=== PATIENT | male | born 1935 | race Two or more races ===

== ENCOUNTER 2017-12-24 12:46 | Inpatient (IN) | payer MEDICARE, OTHER ==
[~2017-12-24] VITALS: Ht 172.7 cm; Wt 65.3 kg
[~2017-12-24 12:46] MED LIST: ACETAMINOPHEN650 M2 ORAL; ATORVASTATIN CA20 MG ORAL; CATAPRES0.1 MG ORAL; DILANTIN100 MG ORAL; ENALAPRIL MALEA20 MG ORAL; MILK OF MA400 MG/51 ORAL; NORCO 5-325 TA1 EAC1 ORAL; OYSTER SHELL C500 MG PO; PROMOD946 ML PO; TOBRAMYCIN5 ML OPHTHALM; ULTRAM50 MG ORAL; VITAMIN D400 INTLU ORAL
[2017-12-24] MEDS ORDERED: PLAVIX75 MG ORAL (18:51)
[2017-12-24] MEDS ORDERED: TYLENOL EXTRA500 MG ORAL (18:51)
[2017-12-24] MEDS ORDERED: COLACE100 MG ORAL (18:51)
[2017-12-24 19:21] LABS: BASOPHILS % (AUTO) 0.3 % (0.0-2.0); EOSINOPHILS % (AUTO) 0.7 % (0.0-3.0); LYMPHOCYTES % (AUTO) 28.2 % (20.0-45.0); MEAN CORPUSCULAR VOLUME 86 FL (80-99); MONOCYTES % (AUTO) 6.6 % (1.0-10.0); NEUTROPHILS % (AUTO) 64.1 % (45.0-75.0); PLATELET COUNT 259 K/UL (150-450); RED CELL DISTRIBUTION WIDTH 12.7 % (11.6-14.8); WHITE BLOOD COUNT 8.5 K/UL (4.8-10.8)
[2017-12-24] MEDS ORDERED: Acetaminophen 500mg (ES) tab ORAL PRN (19:30)
[2017-12-24 19:46] LABS: ALANINE AMINOTRANSFERASE 18 U/L (12-78); ALBUMIN 3.3 G/DL (3.4-5.0); ALBUMIN/GLOBULIN RATIO 0.8 (1.0-2.7); ALKALINE PHOSPHATASE 158 U/L (46-116); ANION GAP 10 mmol/L (5-15); ASPARTATE AMINO TRANSFERASE 14 U/L (15-37); BILIRUBIN,TOTAL 0.4 MG/DL (0.2-1.0); BLOOD UREA NITROGEN 9 mg/dL (7-18); CALCIUM 8.6 MG/DL (8.5-10.1); CARBON DIOXIDE 24 MMOL/L (21-32); CHLORIDE 104 MMOL/L (98-107); CREATININE 0.7 MG/DL (0.55-1.30); POTASSIUM 3.5 MMOL/L (3.5-5.1); SODIUM 138 MMOL/L (136-145)
[2017-12-24 20:00] VITALS: BP 158/92
[2017-12-24] MEDS ORDERED: MULTIVITAMINS1 EAC8 ORAL (20:44)
[2017-12-24] MEDS ORDERED: DILANTIN100 MG ORAL (20:44)
[2017-12-24] MEDS ORDERED: CRANBERRY425 MG PO (20:44)
[2017-12-24] MEDS: Heparin 5000 units/ml inj SUBQ SCH (21:11)
[2017-12-25] VITALS: BP 163/100
[2017-12-25 04:00] VITALS: BP 169/91
[2017-12-25 07:05] LABS: CHOLESTEROL 198 MG/DL (< 200); HDL CHOLESTEROL 38 MG/DL (40-60); TRIGLYCERIDES 176 MG/DL (30-150)
[2017-12-25 08:00] VITALS: BP 150/89
[2017-12-25] MEDS ORDERED: traMADol 50mg tab ORAL SCH (09:00)
[2017-12-25] MEDS ORDERED: Vitamin D 400 INTLU TAB ORAL SCH (09:00)
[2017-12-25] MEDS ORDERED: Tobramycin Op Soln 0.3% 5ml BOTH EYES SCH (09:00)
[2017-12-25] MEDS ORDERED: Phenytoin 100mg cap ORAL SCH (09:00)
[2017-12-25] MEDS: Docusate 250mg cap ORAL SCH (09:03)
[2017-12-25] MEDS: Metoprolol 25mg tab ORAL SCH ×2 (09:03→22:00)
[2017-12-25] MEDS: Heparin 5000 units/ml inj SUBQ SCH ×2 (09:04→22:04)
[2017-12-25] MEDS: Phenytoin Susp 100mg/4ml NG SCH ×2 (10:22→22:01)
[2017-12-25 12:00] VITALS: BP 152/75
[2017-12-25] MEDS ORDERED: Lisinopril 20mg tab ORAL SCH (13:00)
[2017-12-25] MEDS ORDERED: Norco 5mg/325mg tab ORAL PRN (13:30)
--- NOTE | 2017-12-25 14:04 | Cardiology Report ---
APPROVED REPORT EXAM: Two-dimensional and M-mode echocardiogram with Doppler and color Doppler. INDICATION ALTERED LOC M-Mode DIMENSIONS Left Atrium (MM)3.5 (1.6-4.0cm) Aortic Root2.9 (2.0-3.7cm) Aortic Cusp Exc.1.7 (1.5-2.0cm) Normal left ventricular chamber size. This study precludes analysis of systolic function and wall motion. Left ventricular ejection fraction is grossly noraml . Moderate left ventricular hypertrophy by 2-D. No evidence of pericardial effusion. Focal aortic valve sclerosis with adequate cusp excursion. Thickened mitral valve leaflets with normal excursion. Mitral annulus and aortic root calcification.
[2017-12-25 16:00] VITALS: BP 162/86
--- NOTE | 2017-12-25 17:15 | History and Physical Report ---
DATE OF ADMISSION: 12/24/2017 CHIEF COMPLAINT: Chest pain. HISTORY OF PRESENT ILLNESS: The patient is an unfortunate male. He has a prior history of stroke with right-sided hemiparesis. He has a history of dementia, peripheral vascular disease, urinary retention, BPH, and pancytopenia. He was transferred from a alf facility with complaints of chest pain. He was initially taken to an outside hospital. There, his initial troponin, EKG, and chest x-ray were unremarkable. The patient does have a significant history, which includes stroke. So, the patient best be admitted because of his underlying risk factors and for further evaluation. Currently, he continues to have mild chest pain, which is somewhat reproducible. He denies any fevers or chills. No cough. PAST MEDICAL HISTORY: As above. PAST SURGICAL HISTORY: None. CURRENT MEDICATIONS: Reconciled and reviewed. ALLERGIES: None. FAMILY HISTORY: None. SOCIAL HISTORY: Negative for tobacco, ethanol, or drugs. REVIEW OF SYSTEMS: Difficult to obtain as the patient is aphasic. PHYSICAL EXAMINATION: VITAL SIGNS: Temperature 98, pulse 80, respirations 25, and blood pressure 159/100. GENERAL: The patient is a chronically ill-appearing male, in no apparent distress. He has a left facial droop. NECK: Supple. HEART: Regular rate and rhythm. LUNGS: Clear. ABDOMEN: Soft, nontender, and nondistended. EXTREMITIES: Without clubbing or cyanosis. There is right-sided hemiparesis noted. LABORATORY AND DIAGNOSTIC DATA: EKG and chest x-ray are negative. Sodium was 138, potassium 3.5, and creatinine 0.7. Natriuretic peptide level was 43. The LDL is 132. TSH is 4. ASSESSMENT: This is a pleasant male with a history of stroke, peripheral artery disease, and hypertension admitted with chest pain. 1. Chest pain, rule out acute coronary syndrome. 2. Hypertension. 3. History of stroke. PLAN: 1. Antiplatelet therapy. 2. Cardiology consultation. 3. Check a venous duplex of the lower extremities. 4. Continue Dilantin. 5. Lipid therapy. 6. Check an echo. Burt Russell M.D. DR: EDGAR JOB#: [id number] CC:
[2017-12-25 20:00] VITALS: BP 140/70
[2017-12-25] MEDS ORDERED: Milk of Magnesia 30ml Ud ORAL SCH (21:00)
[2017-12-26] VITALS: BP 137/75
--- NOTE | 2017-12-26 00:30 | Progress Note ---
DATE: 12/25/2017 CARDIOLOGY PROGRESS NOTE SUBJECTIVE: No new chest pain. monitor technician sinus with atrial ectopy, nonsustained. OBJECTIVE: VITAL SIGNS: Blood pressure 150/89 to 168/86, heart rate 91, respiratory rate 20, and afebrile. NECK: Supple. LUNGS: Clear. CARDIAC: Regular. Normal S1, S2 with a fourth heart sound. ABDOMEN: Soft. EXTREMITIES: No edema. Pulses diminished. Right hemiparesis. LABORATORY DATA: Natriuretic peptide 483. Total cholesterol of 198 with LDL 132 and HDL 38. TSH 4. Echocardiogram, poor study due to poor window. IMPRESSION: 1. Acute coronary syndrome. 2. Hypertensive heart disease with uncontrolled blood pressure. 3. Hyperlipidemia with poor lipid parameters including low HDL syndrome. 4. Type 2 diabetes mellitus. 5. Mild protein-calorie malnutrition. 6. Peripheral artery disease with no signs of acute lower extremity ischemia. PLAN: 1. Up titrate and optimize blood pressure control. 2. Maximize antianginal therapy. 3. Increase statin dose. 4. LDL goal should be less than 70. 5. Continue antiplatelet therapy. 6. We will continue efforts to optimize medically rather than pursue an invasive strategy in this patient with multiple comorbidities and poor performance status. Jose Luis Herron M.D. DR: JOMAR JOB#: [id number] CC:
--- NOTE | 2017-12-26 01:45 | Consultation ---
DATE OF CONSULTATION: 12/24/2017 CARDIOLOGY CONSULTATION CONSULTING PHYSICIAN: Jose Luis Herron M.D. REQUESTING PHYSICIAN: Burt Russell M.D. REASON FOR CONSULTATION: Chest pain in the setting of severe atherosclerosis. HISTORY OF PRESENT ILLNESS: This is an 82-year-old male, who resides at a [facility] facility. He has a history of accelerated atherosclerosis including prior CVA and severe peripheral vascular disease with coronary atherosclerosis as well. He apparently complained of chest pain at the [facility] facility and while he is not verbal, he just showed with hand motions to family members. The patient was taken to the emergency room at an outside facility where initial troponins were negative. EKG revealed sinus rhythm with nonspecific ST-T wave changes and chest x-ray revealed no acute process. He was transferred here for continuation of care. The patient apparently still had chest pain on arrival here, although at this time during my evaluation, he does not. PAST MEDICAL HISTORY: Cerebrovascular disease, cerebrovascular accident with right hemiparesis, peripheral artery disease, history of ischemic right first toe, hypertension with hypertensive heart disease, prostatic hypertrophy, type 2 diabetes mellitus, and hyperlipidemia. MEDICATIONS: Prior to admission, reviewed and reconciled. ALLERGIES: None. SOCIAL HISTORY: No record of smoking, alcohol, or substance abuse. FAMILY HISTORY: Noncontributory. REVIEW OF SYSTEMS: Not obtainable from the patient. Pertinent data from prior records is as outlined above. PHYSICAL EXAMINATION: VITAL SIGNS: Blood pressure 158/92, pulse 89, respiratory rate 20, and oxygen saturation on room air 96%. HEENT: Temporal wasting. Pale conjunctivae. Oropharynx clear. Mucous membranes moist. NECK: Supple. Jugular venous pressure normal. No bruits. LUNGS: Clear. CARDIAC: Regular rhythm and rate. Normal S1, S2 with a fourth heart sound. ABDOMEN: Soft and nontender. EXTREMITIES: No clubbing or cyanosis. Decreased pulses. No acute ischemic changes. No edema. Right-sided weakness. Aphasia. LABORATORY DATA: White count 8.5, hemoglobin 15. Troponin is 0.031. BUN 9, creatinine 0.7, potassium 3.5. Albumin 3.3. IMPRESSION: 1. Acute coronary syndrome. 2. Type 2 diabetes mellitus. 3. Hypertensive heart disease. 4. Hyperlipidemia. 5. Cerebrovascular accident with hemiparesis and aphasia. PLAN: 1. Cardiac monitoring. 2. Serial troponin. 3. Antianginal therapy including nitrates and beta-blockers. 4. Statin drug for LDL goal less than 100. Check full lipid panel. 5. Continue anti-platelet therapy. 6. DVT prophylaxis. 7. Recurring chest pain may warrant transfer for cardiac catheterization, although his poor performance status suggest that medical management be optimized if possible. Jose Luis Herron M.D. DR: Leah JOB#: [id number] CC:
[2017-12-26 04:00] VITALS: BP 135/82
[2017-12-26 08:00] VITALS: BP 165/85
[2017-12-26] MEDS: Docusate 250mg cap ORAL SCH (08:12)
[2017-12-26] MEDS: Phenytoin Susp 100mg/4ml NG SCH ×2 (08:12→20:45)
[2017-12-26] MEDS: Lisinopril 20mg tab ORAL SCH (08:13)
[2017-12-26] MEDS: Metoprolol 25mg tab ORAL SCH ×2 (08:14→20:47)
[2017-12-26] MEDS: Heparin 5000 units/ml inj SUBQ SCH ×2 (08:15→20:48)
[2017-12-26] MEDS ORDERED: Lisinopril 20mg tab ORAL SCH (09:00)
[2017-12-26 12:00] VITALS: BP 125/70
[2017-12-26 16:00] VITALS: BP 135/68
[2017-12-26 20:00] VITALS: BP 136/77
[2017-12-27] VITALS: BP 132/76
--- NOTE | 2017-12-27 03:15 | Progress Note ---
DATE: 12/26/2017 CARDIOLOGY PROGRESS NOTE SUBJECTIVE: The patient has not had any recurring chest pain, shortness of breath, or arrhythmias. Monitored rhythm is sinus. No significant ectopy. PHYSICAL EXAMINATION: VITAL SIGNS: Blood pressure 136/77, pulse 82, respiratory rate 19, afebrile. NECK: Supple. LUNGS: Clear. CARDIAC: Regular. Normal S1, S2 with a fourth heart sound. ABDOMEN: Soft. EXTREMITIES: No edema. NEUROLOGIC: Baseline neurologic deficits. IMPRESSION: 1. Coronary artery disease with anginal episode, now appears to have stabilized. 2. Cerebrovascular disease. 3. Peripheral artery disease. 4. Hyperlipidemia. 5. Seizure disorder. 6. Hypertensive heart disease, now with blood pressure control improved. PLAN: 1. Continue advanced statin dosing. 2. Maintain current antihypertensives. 3. We will recheck laboratory studies. 4. We will consider long-acting nitrates as well. 5. We will check Dilantin level. Tyesha Coto JOB#: [id number] CC:
[2017-12-27 04:00] VITALS: BP_SYST 128; BP_SYST 139; BP_DIAS 62; BP_DIAS 89
[2017-12-27 08:00] VITALS: BP 148/105
[2017-12-27] MEDS: Docusate 250mg cap ORAL SCH (08:28)
[2017-12-27] MEDS: Phenytoin Susp 100mg/4ml NG SCH ×2 (08:28→20:58)
[2017-12-27] MEDS: Lisinopril 20mg tab ORAL SCH (08:29)
[2017-12-27] MEDS: Imdur 30mg tab ORAL SCH (08:29)
[2017-12-27] MEDS: Metoprolol 25mg tab ORAL SCH ×2 (08:30→20:59)
[2017-12-27] MEDS: Heparin 5000 units/ml inj SUBQ SCH ×2 (08:31→20:59)
[2017-12-27 08:39] LABS: BASOPHILS % (AUTO) 0.7 % (0.0-2.0); EOSINOPHILS % (AUTO) 2.4 % (0.0-3.0); HEMATOCRIT 42.9 % (42.0-52.0); HEMOGLOBIN 14.1 G/DL (14.2-18.0); LYMPHOCYTES % (AUTO) 34.7 % (20.0-45.0); MEAN CORPUSCULAR VOLUME 89 FL (80-99); MONOCYTES % (AUTO) 8.5 % (1.0-10.0); NEUTROPHILS % (AUTO) 53.7 % (45.0-75.0); PLATELET COUNT 205 K/UL (150-450); RED BLOOD COUNT 4.82 M/UL (4.70-6.10); RED CELL DISTRIBUTION WIDTH 12.7 % (11.6-14.8); WHITE BLOOD COUNT 5.6 K/UL (4.8-10.8)
[2017-12-27 09:13] LABS: ALANINE AMINOTRANSFERASE 20 U/L (12-78); ALBUMIN 2.9 G/DL (3.4-5.0); ALBUMIN/GLOBULIN RATIO 0.7 (1.0-2.7); ALKALINE PHOSPHATASE 140 U/L (46-116); ANION GAP 10 mmol/L (5-15); ASPARTATE AMINO TRANSFERASE 16 U/L (15-37); BILIRUBIN,TOTAL 0.4 MG/DL (0.2-1.0); BLOOD UREA NITROGEN 23 mg/dL (7-18); CALCIUM 8.1 MG/DL (8.5-10.1); CARBON DIOXIDE 24 MMOL/L (21-32); CHLORIDE 109 MMOL/L (98-107); POTASSIUM 3.5 MMOL/L (3.5-5.1); SODIUM 143 MMOL/L (136-145)
[2017-12-27 12:00] VITALS: BP 108/63
--- NOTE | 2017-12-27 15:00 | General Progress Note ---
Assessment/Plan Problem List: (1) Hypertension ICD Codes: I10 - Essential (primary) hypertension SNOMED: 82269364 (2) Toxic metabolic encephalopathy ICD Codes: G92 - Toxic encephalopathy SNOMED: 041611516 (3) Arterial occlusion (4) Conjunctivitis ICD Codes: H10.9 - Unspecified conjunctivitis SNOMED: 4407627 (5) Chest pain ICD Codes: R07.9 - Chest pain, unspecified SNOMED: 89387381 Status: stable, progressing Assessment/Plan cont current rx replace lytes antiplt rx compliance stressed cards follow up dc planning tomorrow if stable Subjective ROS Limited/Unobtainable: No Constitutional: Reports: malaise, weakness HEENT: Reports: no symptoms Cardiovascular: Reports: chest pain Respiratory: Reports: no symptoms Gastrointestinal/Abdominal: Reports: no symptoms Genitourinary: Reports: no symptoms Neurologic/Psychiatric: Reports: anxiety, pre-existing deficit Endocrine: Reports: no symptoms Hematologic/Lymphatic: Reports: no symptoms Allergies: Coded Allergies: No Known Allergies (Verified , 06/01/08) All Systems: reviewed and negative except above Subjective pulled out iv. refusing meds from male nurse but pt will take meds from female nurse. Objective Last 24 Hour Vital Signs Date Time Temp Pulse Resp B/P (MAP) Pulse Ox O2 Delivery O2 Flow Rate FiO2 12/27/17 12:00 98.0 79 18 108/63 96 Room Air 98.0 12/27/17 12:00 66 12/27/17 08:30 88 148/105 12/27/17 08:29 148/105 12/27/17 08:29 148/105 12/27/17 08:28 148/105 12/27/17 08:00 98.1 88 18 148/105 96 Room Air 98.1 12/27/17 08:00 87 12/27/17 04:00 87 12/27/17 04:00 97.6 87 18 128/89 96 Room Air 97.6 12/27/17 00:00 97.8 79 18 132/76 96 Room Air 97.8 12/27/17 00:00 79 12/26/17 20:47 78 135/68 12/26/17 20:00 98.1 88 19 136/77 95 Room Air 98.1 12/26/17 20:00 82 12/26/17 17:30 135/68 6/23/18 16:00 77 12/26/17 16:00 97.8 78 18 135/68 96 Room Air 97.8 Intake and Output 12/26/17 12/27/17 19:00 07:00 Intake Total 120 ml Output Total 300 ml Balance 120 ml -300 ml Intake Oral 120 ml Output Urine Total 300 ml # Voids 1 Laboratory Tests 12/27/17 06:20: White Blood Count 5.6, Red Blood Count 4.82, Hemoglobin 14.1L, Hematocrit 42.9, Mean Corpuscular Volume 89, Mean Corpuscular Hemoglobin 29.2, Mean Corpuscular Hemoglobin Concent 32.9, Red Cell Distribution Width 12.7, Platelet Count 205, Mean Platelet Volume 6.1L, Neutrophils (%) (Auto) 53.7, Lymphocytes (%) (Auto) 34.7, Monocytes (%) (Auto) 8.5, Eosinophils (%) (Auto) 2.4, Basophils (%) (Auto ) 0.7, Sodium Level 143, Potassium Level 3.5, Chloride Level 109H, Carbon Dioxide Level 24, Anion Gap 10, Blood Urea Nitrogen 23H, Creatinine 1.0, Estimat Glomerular Filtration Rate , Glucose Level 136H, Calcium Level 8.1L, Total Bilirubin 0.4, Aspartate Amino Transf (AST/SGOT) 16, Alanine Aminotransferase (ALT/SGPT) 20, Alkaline Phosphatase 140H, Pro-B-Type Natriuretic Peptide 180H, Total Protein 6.8, Albumin 2.9L, Globulin 3.9, Albumin /Globulin Ratio 0.7L, Phenytoin (Dilantin) Level 11.0 Height (Feet): 5 Height (Inches): 8.00 Weight (Pounds): 144 General Appearance: WD/WN, alert, confused Neck: supple Cardiovascular: normal rate, regular rhythm Respiratory/Chest: chest wall non-tender, lungs clear, normal breath sounds Abdomen: normal bowel sounds Edema: no edema noted Arm (L), no edema noted Arm (R), no edema noted Leg (L), no edema noted Leg (R), no edema noted Pedal (L), no edema noted Pedal (R), no edema noted Generalized Neurologic: alert, motor weakness - left side Burt Russell MD Dec 27, 2017 15:00
[2017-12-27 16:00] VITALS: BP 118/71
[2017-12-27 20:00] VITALS: BP 135/72
[2017-12-28] VITALS: BP 141/77
--- NOTE | 2017-12-28 | Progress Note ---
DATE: 12/27/2017 SUBJECTIVE: No apparent chest pain. No shortness of breath. Occasional agitation and noncompliance with medications from staff. OBJECTIVE: VITAL SIGNS: Blood pressure 118/71, pulse 82, respiratory rate 18. Earlier had a single blood pressure elevation of 148/108. LUNGS: Clear. CARDIAC: Regular. Normal S1, S2 with a fourth heart sound. ABDOMEN: Soft. EXTREMITIES: No edema. LABORATORY DATA: White count 5.6, hemoglobin 14.1. Potassium 3.5, BUN 23, creatinine 1, albumin 2.9. Pro-natriuretic peptide 180. IMPRESSION: 1. Stable angina. 2. Coronary atherosclerosis. 3. Peripheral artery disease. 4. Dyslipidemia. 5. Dementia with agitation. PLAN: 1. Continue current anti-platelet and anti-lipid regimen. 2. Maintain current cardiovascular drugs without change including long-acting nitrates. 3. Discharge planning. Jose Luis Herron M.D. DR: Dirk JOB#: [id number] CC:
[2017-12-28 04:00] VITALS: BP 151/89
[2017-12-28 08:00] VITALS: BP 134/67
[2017-12-28 08:03] LABS: BASOPHILS % (AUTO) 0.7 % (0.0-2.0); EOSINOPHILS % (AUTO) 2.2 % (0.0-3.0); HEMATOCRIT 43.8 % (42.0-52.0); HEMOGLOBIN 14.5 G/DL (14.2-18.0); LYMPHOCYTES % (AUTO) 41.7 % (20.0-45.0); MEAN CORPUSCULAR VOLUME 90 FL (80-99); NEUTROPHILS % (AUTO) 47.5 % (45.0-75.0); PLATELET COUNT 227 K/UL (150-450); RED BLOOD COUNT 4.89 M/UL (4.70-6.10); RED CELL DISTRIBUTION WIDTH 12.8 % (11.6-14.8); WHITE BLOOD COUNT 4.8 K/UL (4.8-10.8)
[2017-12-28 08:32] LABS: ALANINE AMINOTRANSFERASE 21 U/L (12-78); ALBUMIN 3.2 G/DL (3.4-5.0); ALBUMIN/GLOBULIN RATIO 0.9 (1.0-2.7); ALKALINE PHOSPHATASE 145 U/L (46-116); ANION GAP 8 mmol/L (5-15); ASPARTATE AMINO TRANSFERASE 19 U/L (15-37); BILIRUBIN,TOTAL 0.4 MG/DL (0.2-1.0); BLOOD UREA NITROGEN 28 mg/dL (7-18); CALCIUM 8.4 MG/DL (8.5-10.1); CARBON DIOXIDE 25 MMOL/L (21-32); CHLORIDE 113 MMOL/L (98-107); POTASSIUM 4.7 MMOL/L (3.5-5.1); SODIUM 146 MMOL/L (136-145)
[2017-12-28] MEDS: Metoprolol 25mg tab ORAL SCH (09:15)
[2017-12-28] MEDS: Phenytoin Susp 100mg/4ml NG SCH (09:15)
[2017-12-28] MEDS: Docusate 250mg cap ORAL SCH (09:15)
[2017-12-28] MEDS: Imdur 30mg tab ORAL SCH (09:15)
[2017-12-28] MEDS: Lisinopril 20mg tab ORAL SCH (09:16)
[2017-12-28] MEDS: Heparin 5000 units/ml inj SUBQ SCH (09:18)
[2017-12-28 12:00] VITALS: BP 155/96
--- NOTE | 2017-12-28 12:30 | Discharge Summary ---
DATE OF ADMISSION: 12/24/2017 DATE OF DISCHARGE: 12/28/2017 ADMISSION DIAGNOSES: 1. Acute coronary syndrome. 2. Encephalopathy. 3. Prior history of stroke. 4. Hypertension. 5. Hyperlipidemia. 6. Seizure disorder. DISCHARGE DIAGNOSES: 1. Acute coronary syndrome. 2. Encephalopathy. 3. Prior history of stroke. 4. Hypertension. 5. Hyperlipidemia. 6. Seizure disorder. HOSPITAL COURSE: The patient was initially transferred from the [facility] facility with complaints of chest pain here to rule out for NV with serial enzymes and EKGs. He had no further episodes of chest pain while here in the hospital. He was ruled out for NV. He was continued on seizure medications. Cardiology consultation was obtained. No further recommendations regarding workup was recommended other than continue medical management and observation. On discharge, he was stable, will be discharged back to the [facility] facility. DISCHARGE MEDICATIONS: Please see discharge medication list for discharge medications. DIET: Cardiac diet. ACTIVITIES: Ad-gage. FOLLOWUP: The patient will follow up in one to two days to [facility]. Burt Russell M.D. DR: MEHRAN JOB#: [id number] CC:
--- NOTE | 2017-12-28 19:30 | Progress Note ---
DATE: 12/28/2017 CARDIOLOGY PROGRESS NOTE SUBJECTIVE: The patient is without chest pain or shortness of breath. Monitored rhythm, sinus. OBJECTIVE: VITAL SIGNS: Blood pressure reveals range of 134/67 to 155/96, heart rate is 73 to 99, and respiratory is 18 to 20. He remains afebrile. NECK: Supple. Jugular venous pressure normal. LUNGS: Clear. CARDIAC: Regular rhythm and rate. Normal S1 and S2 with a fourth heart sound. ABDOMEN: Soft. EXTREMITIES: No edema. Baseline aphasia. IMPRESSION: 1. Arteriosclerotic cardiovascular disease with apparent stabilized anginal pattern on medical therapy. 2. Hypertensive cardiomyopathy with episodes of blood pressure elevations. 3. Peripheral artery disease with history of right first toe amputation. 4. Cerebrovascular disease with right-sided weakness. 5. Hyperlipidemia, on statin drug. PLAN: Stable for transfer to [facility] facility. Long-acting nitrates were just added. Additional antihypertensives can be considered if blood pressure range remains in the high normal range that may include advancing the long-acting nitrate dose or increasing the beta-florencia, this was discussed with the primary care physician. LDL level should be checked in 6 weeks with goal less than 70. Jose Luis Herron M.D. DR: RUBIN JOB#: [id number] CC:
== END 2017-12-28 13:00 | DRG 311 ==
LOC: 2E 12:46
DX: I24.9 Acute ischemic heart disease, unspecified (principal); G92 Toxic encephalopathy; I69.351 Hemiplegia and hemiparesis following cerebral infarction affecting right dominant side; E44.1 Mild protein-calorie malnutrition; F03.91 Unspecified dementia, unspecified severity, with behavioral disturbance; I11.9 Hypertensive heart disease without heart failure; E78.5 Hyperlipidemia, unspecified; I73.9 Peripheral vascular disease, unspecified; N40.1 Benign prostatic hyperplasia with lower urinary tract symptoms; R33.8 Other retention of urine; E11.9 Type 2 diabetes mellitus without complications; I69.320 Aphasia following cerebral infarction; I25.118 Atherosclerotic heart disease of native coronary artery with other forms of angina pectoris; H10.9 Unspecified conjunctivitis; Z89.411 Acquired absence of right great toe
CPT/HCPCS: 36415; 80053; 80061; 80185; 83880; 84443; 84484; 85025; 93306; 93970; J8499

== ENCOUNTER 2018-07-01 12:16 | Inpatient (IN) | payer MEDICARE, OTHER ==
[~2018-07-01] VITALS: Ht 172.7 cm; Wt 72.6 kg
[~2018-07-01 12:16] MED LIST changes: +COLACE100 MG ORAL; +CRANBERRY425 MG PO; +MULTIVITAMINS1 EAC8 ORAL; +PLAVIX75 MG ORAL; +TYLENOL EXTRA500 MG ORAL
[2018-07-01] MEDS ORDERED: Sodium Chloride 500ML 500 ML IV ONE (12:36)
[2018-07-01 12:37] VITALS: BP 177/97
[2018-07-01 13:09] VITALS: BP 161/83
[2018-07-01 13:22] LABS: ANION GAP 11 mmol/L (5-15); BLOOD UREA NITROGEN 19 mg/dL (7-18); CALCIUM 9.4 MG/DL (8.5-10.1); CARBON DIOXIDE 26 MMOL/L (21-32); CHLORIDE 106 MMOL/L (98-107); CREATININE 0.7 MG/DL (0.55-1.30); POTASSIUM 4.1 MMOL/L (3.5-5.1); SODIUM 143 MMOL/L (136-145)
[2018-07-01 13:26] LABS: BASOPHILS % (AUTO) 0.5 % (0.0-2.0); EOSINOPHILS % (AUTO) 1.1 % (0.0-3.0); HEMATOCRIT 50.6 % (42.0-52.0); HEMOGLOBIN 16.4 G/DL (14.2-18.0); LYMPHOCYTES % (AUTO) 36.6 % (20.0-45.0); MEAN CORPUSCULAR VOLUME 91 FL (80-99); MONOCYTES % (AUTO) 7.6 % (1.0-10.0); NEUTROPHILS % (AUTO) 54.3 % (45.0-75.0); PLATELET COUNT 230 K/UL (150-450); RED BLOOD COUNT 5.57 M/UL (4.70-6.10); RED CELL DISTRIBUTION WIDTH 14.5 % (11.6-14.8); WHITE BLOOD COUNT 5.4 K/UL (4.8-10.8)
[2018-07-01 13:31] LABS: ALANINE AMINOTRANSFERASE 17 U/L (12-78); ALBUMIN 3.5 G/DL (3.4-5.0); ALBUMIN/GLOBULIN RATIO 0.9 (1.0-2.7); ALKALINE PHOSPHATASE 139 U/L (46-116); ASPARTATE AMINO TRANSFERASE 23 U/L (15-37); BILIRUBIN,TOTAL 0.6 MG/DL (0.2-1.0); CKMB 0.6 NG/ML (0.0-3.6); CREATINE KINASE 77 U/L (26-308)
--- NOTE | 2018-07-01 13:41 | Emergency Room Report ---
History of Present Illness General Chief Complaint: Abnormal Labs Source: Patient Present Illness HPI Patient presents with reports of elevated Dilantin levels at the nursing facility Patient himself is chronically debilitated and does not have any input There was no reports of nystagmus or change in mental status There was no reports of vomiting or diarrhea Patient is on Dilantin for seizure disorder Allergies: Coded Allergies: No Known Allergies (Verified , 06/01/08) Patient History Limited by: medical condition Past Medical History: see triage record Pertinent Family History: unable to obtain Reviewed Nursing Documentation: PMH: Agreed; PSxH: Agreed Nursing Documentation-PMH Hx Cardiac Problems: Yes - A FIB, THROMBOCYTOPENIA, TACHYCARDIA Hx Hypertension: Yes Hx Diabetes: Yes Hx Cancer: No Hx Gastrointestinal Problems: No Hx Neurological Problems: Yes Hx Cerebrovascular Accident: Yes - R SIDED WEAKNESS Hx Seizures: Yes 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 Review of Systems All Other Systems: limited - Other than the ones mentioned in the history of present illness all others are reviewed however they do stay limited due to the patient's mental status Physical Exam Vital Signs Date Time Temp Pulse Resp B/P (MAP) Pulse Ox O2 Delivery O2 Flow Rate FiO2 07/01/18 12:19 97.7 78 16 137/81 98 Room Air Sp02 EP Interpretation: reviewed, normal General Appearance: no apparent distress Head: normocephalic, atraumatic Eyes: bilateral eye PERRL ENT: normal pharynx Neck: supple Respiratory: chest non-tender, lungs clear Cardiovascular #1: regular rate, rhythm Gastrointestinal: non tender, soft Musculoskeletal: other - Patient chronically debilitated both feet are extended Neurologic: responsive - To physical stimuli Skin: normal color, no rash Lymphatic: no adenopathy Medical Decision Making Diagnostic Impression: Primary Impression: Dilantin toxicity ER Course Patient is a fairly complex patient with multiple differential to consideration including but not limited to cardiac cardiopulmonary and vascular emergencies Patient's Dilantin level is still significantly elevated Patient has further hydration performed On monitoring and requires further inpatient evaluation Labs Test 07/01/18 12:55 White Blood Count 5.4 K/UL (4.8-10.8) Red Blood Count 5.57 M/UL (4.70-6.10) Hemoglobin 16.4 G/DL (14.2-18.0) Hematocrit 50.6 % (42.0-52.0) Mean Corpuscular Volume 91 FL (80-99) Mean Corpuscular Hemoglobin 29.5 PG (27.0-31.0) Mean Corpuscular Hemoglobin Concent 32.4 G/DL (32.0-36.0) Red Cell Distribution Width 14.5 % (11.6-14.8) Platelet Count 230 K/UL (150-450) Mean Platelet Volume 6.0 FL (6.5-10.1) Neutrophils (%) (Auto) 54.3 % (45.0-75.0) Lymphocytes (%) (Auto) 36.6 % (20.0-45.0) Monocytes (%) (Auto) 7.6 % (1.0-10.0) Eosinophils (%) (Auto) 1.1 % (0.0-3.0) Basophils (%) (Auto) 0.5 % (0.0-2.0) Sodium Level 143 MMOL/L (136-145) Potassium Level 4.1 MMOL/L (3.5-5.1) Chloride Level 106 MMOL/L (98-107) Carbon Dioxide Level 26 MMOL/L (21-32) Anion Gap 11 mmol/L (5-15) Blood Urea Nitrogen 19 mg/dL (7-18) Creatinine 0.7 MG/DL (0.55-1.30) Estimat Glomerular Filtration Rate mL/min (>60) Glucose Level 104 MG/DL (74-106) Calcium Level 9.4 MG/DL (8.5-10.1) Total Bilirubin 0.6 MG/DL (0.2-1.0) Aspartate Amino Transf (AST/SGOT) 23 U/L (15-37) Alanine Aminotransferase (ALT/SGPT) 17 U/L (12-78) Alkaline Phosphatase 139 U/L (46-116) Total Creatine Kinase 77 U/L (26-308) Creatine Kinase MB 0.6 NG/ML (0.0-3.6) Creatine Kinase MB Relative Index 0.7 Total Protein 7.5 G/DL (6.4-8.2) Albumin 3.5 G/DL (3.4-5.0) Globulin 4.0 g/dL Albumin/Globulin Ratio 0.9 (1.0-2.7) Phenytoin (Dilantin) Level 32.7 ug/mL (10-20) Rhythm Strip Diag. Results EP Interpretation: yes Rate: 70 Rhythm: NSR, no PVC's, no ectopy Last Vital Signs Date Time Temp Pulse Resp B/P (MAP) Pulse Ox O2 Delivery O2 Flow Rate FiO2 07/01/18 13:09 97.7 75 16 161/83 98 Room Air Status: improved Disposition: ADMITTED INPATIENT Condition: Serious Referrals: Aureliano Allison MD (PCP) Korin Jensen DO Jul 01, 2018 13:41
[2018-07-01] MEDS ORDERED: ASCORBIC ACID500 MG ORAL (15:25)
[2018-07-01] MEDS ORDERED: CLONIDINE HCL0.1 MG PO (15:25)
[2018-07-01] MEDS ORDERED: NORVASC5 MG ORAL (15:25)
[2018-07-01] MEDS ORDERED: ACETAMINOPHEN325 M1 ORAL (15:25)
[2018-07-01] MEDS ORDERED: Milk of Magnesia 30ml Ud ORAL PRN (15:45)
[2018-07-01] MEDS ORDERED: Fleet's Enema 133ml RECTAL PRN (15:45)
[2018-07-01] MEDS ORDERED: Norco 5mg/325mg tab ORAL PRN (15:45)
[2018-07-01 20:00] VITALS: BP 165/96
[2018-07-01] MEDS: NovoLOG Insulin Flexpen SUBQ SCH (21:07)
[2018-07-02] VITALS: BP 148/95
[2018-07-02 04:00] VITALS: BP 162/99
[2018-07-02] MEDS: NovoLOG Insulin Flexpen SUBQ SCH ×4 (05:52→21:03)
[2018-07-02 08:00] VITALS: BP 164/91
[2018-07-02] MEDS ORDERED: Vitamin A&D Oint 2oz Tube TOPIC SCH (09:00)
[2018-07-02] MEDS ORDERED: Docusate 100mg cap ORAL SCH (09:00)
[2018-07-02] MEDS ORDERED: Ascorbic Acid 500mg tab ORAL SCH (09:00)
[2018-07-02] MEDS ORDERED: Fleet's Enema 133ml RECTAL PRN (11:40)
[2018-07-02] MEDS ORDERED: Milk of Magnesia 30ml Ud ORAL PRN (11:40)
[2018-07-02] MEDS ORDERED: Norco 5mg/325mg tab ORAL PRN (11:45)
[2018-07-02] MEDS ORDERED: Haloperidol 5mg/ml Inj IM SCH ×2 (11:45)
[2018-07-02] MEDS ORDERED: Haloperidol 5mg/ml Inj IM PRN ×2 (11:45)
--- NOTE | 2018-07-02 11:45 | History and Physical Report ---
DATE OF ADMISSION: 07/01/2018 CHIEF COMPLAINT: Dilantin toxicity. HISTORY OF PRESENT ILLNESS: The patient is a pleasant unfortunate 83-year-old male, well known to me. He has a history of prior intracranial bleed and stroke, seizure disorder, and hypertension. He has a history of hypertensive heart disease, who presented from a [facility] facility with complaints of Dilantin toxicity. The patient was noted to be more somnolent sleepy. Routine laboratory tests there showed a Dilantin level of 130. This was confirmed in the emergency room, the patient is now admitted. He currently is awake, but is confused and is nonverbal. PAST MEDICAL HISTORY: Significant for history of encephalopathy, stroke, hypertension, hyperlipidemia, and seizure disorder. PAST SURGICAL HISTORY: None. CURRENT MEDICATIONS: Reconciled and reviewed. ALLERGIES: None. FAMILY HISTORY: None. SOCIAL HISTORY: Negative for tobacco, ethanol, or drugs. REVIEW OF SYSTEMS: Unobtainable as the patient is lethargic and confused. PHYSICAL EXAMINATION: VITAL SIGNS: Temperature 97.7 degrees, pulse 95, respirations 20, and blood pressure 155/96. GENERAL: The patient is well developed, in no apparent distress. HEART: Regular rate and rhythm. LUNGS: Clear. ABDOMEN: Soft, nontender, and nondistended. EXTREMITIES: Without clubbing, cyanosis, or edema. NEUROLOGIC: The patient does open his eyes. Does not follow commands. PERTINENT DATA: White count was 5, hemoglobin 16, hematocrit of 50, and platelet count of 230,000. Sodium 141, potassium 4.1, and creatinine was 0.7. Dilantin level was 33. ASSESSMENT: This is a pleasant male with prior history of stroke, seizure disorder, hypertension, history of acute coronary syndrome, and encephalopathy, admitted with complaints of Dilantin toxicity. 1. Dilantin toxicity. 2. Toxic metabolic encephalopathy secondary to above. 3. Prior history of stroke. 4. Hypertension. 5. History of dysphagia. PLAN: 1. Hold Dilantin. 2. Gentle hydration. 3. Monitor serial Dilantin levels. 4. Continue outpatient cardiac regimen. 5. PT and OT evaluations were obtained. Burt Russell M.D. DR: SUSHMA JOB#: [id number] CC:
[2018-07-02 12:00] VITALS: BP 140/89
[2018-07-02 16:00] VITALS: BP 130/69
[2018-07-02 20:00] VITALS: BP 148/86
--- NOTE | 2018-07-02 20:49 | Consultation ---
History of Present Illness General Chief Complaint: Abnormal Labs Present Illness HPI 83-year-old male, with history of stroke, seizure disorder, and hypertension, heart disease, who presented from a care home facility with complaints of Dilantin toxicity. The pt is agitated and disorganized the pt was unable to provide hx. the pt has memory impairment. the pt is currently uncooperative and is not taking any medications. the pt was unable to understand nor process the information given to him. Allergies: Coded Allergies: No Known Allergies (Verified , 06/01/08) Medication History Scheduled Amlodipine Besylate (Norvasc), 5 MG ORAL DAILY, (Reported) Ascorbic Acid* (Ascorbic Acid*), 500 MG ORAL DAILY, (Reported) Atorvastatin Calcium* (Atorvastatin Calcium*), 10 MG ORAL BEDTIME, (Reported) Clopidogrel Bisulfate* (Plavix*), 75 MG ORAL DAILY, (Reported) Cranberry Extract (Cranberry), 425 MG PO BID, (Reported) Docusate Sodium* (Colace*), 250 MG ORAL DAILY, (Reported) Enalapril Maleate* (Enalapril Maleate*), 20 MG ORAL BID, (Reported) Magnesium Hydroxide* (Milk Of Magnesia*), 30 ML ORAL BEDTIME, (Reported) Multivitamin With Minerals (Multivitamins With Minerals*), 1 TAB ORAL DAILY, ( Reported) Phenytoin Sodium Extended* (Dilantin*), 300 MG ORAL BID, (Reported) Phenytoin Sodium Extended* (Dilantin*), 400 MG ORAL Q12HR, (Reported) Protein Supplement (Promod), 30 ML PO DAILY, (Reported) Tobramycin (Tobramycin), 2 DROP OPHTHALM THREE TIMES A DAY Tramadol Hcl (Ultram*), 50 MG ORAL DAILY, (Reported) Vitamin D (Vitamin D3), 400 UNITS ORAL DAILY, (Reported) Scheduled PRN Acetaminophen* (Tylenol Extra Strength*), 1,000 MG ORAL Q4HR PRN for Mild Pain/ Temp > 100.5, (Reported) Acetaminophen* (Acetaminophen 325MG Tablet*), 650 MG ORAL Q4H PRN for Mild Pain/ Temp > 100.5, (Reported) Clonidine Hcl (Clonidine Hcl), 0.1 MG PO Q4HR PRN for For High Blood Pressure, ( Reported) Hydrocodone Bit/Acetaminophen 5-325* (Malone 5-325 Tablet*), 1 TAB ORAL Q4H PRN for For Pain, (Reported) Patient History Limited by: medical condition History Provided By: Medical Record, PMD Healthcare decision maker Resuscitation status Full Code Advanced Directive on File Past Medical/Surgical History Past Medical/Surgical History: (1) Conjunctivitis (2) Chest pain (3) Hypertension (4) Arterial occlusion (5) Dilantin toxicity (6) Fracture, metacarpal (7) Chronic subdural hematoma (8) Toxic metabolic encephalopathy Review of Systems Psychiatric: Reports: prior hx, anxiety, hallucinations Physical Exam General Appearance: alert, confused, agitated Neurologic: disoriented Last 24 Hour Vital Signs Date Time Temp Pulse Resp B/P (MAP) Pulse Ox O2 Delivery O2 Flow Rate FiO2 07/02/18 20:00 97.3 97 19 148/86 (106) 94 07/02/18 16:00 97.0 86 20 130/69 (89) 94 07/02/18 16:00 85 07/02/18 12:00 88 07/02/18 12:00 97.0 89 20 140/89 (106) 94 07/02/18 09:00 Room Air 07/02/18 08:00 97.1 93 17 164/91 (115) 92 07/02/18 04:34 162/99 07/02/18 04:00 97.5 82 17 162/99 (120) 92 07/02/18 00:00 97.6 97 17 148/95 (112) 92 07/01/18 21:07 165/96 07/01/18 21:00 Room Air Intake and Output 07/01/18 07/02/18 19:00 07:00 Intake Total 240 ml 360 ml Balance 240 ml 360 ml Intake Oral 240 ml 360 ml # Voids 4 # Bowel Movements 1 Laboratory Tests Test 07/02/18 05:10 Hemoglobin A1c 5.0 % (4.3-6.0) Phenytoin (Dilantin) Level 27.6 ug/mL (10-20) H Height (Feet): 5 Height (Inches): 8.00 Weight (Pounds): 165 Medications Current Medications Medications (Trade) Dose Ordered Sig/Darian Route PRN Reason Start Time Stop Time Status Last Admin Dose Admin Acetaminophen (Tylenol) 650 mg Q4H PRN ORAL Mild Pain/Temp > 100.5 07/02/18 11:38 08/01/18 11:37 Acetaminophen/ Hydrocodone Bitart (Malone 5/325) 1 tab Q4H PRN ORAL Moderate Pain (Pain Scale 4-6) 07/02/18 11:45 07/08/18 15:44 Amlodipine Besylate (Norvasc) 5 mg DAILY ORAL 07/03/18 09:00 08/01/18 08:59 Ascorbic Acid (Vitamin C) 500 mg DAILY ORAL 07/03/18 09:00 08/01/18 08:59 Atorvastatin Calcium (Lipitor) 10 mg BEDTIME ORAL 07/02/18 21:00 07/31/18 20:59 Clonidine HCl (Catapres Tab) 0.1 mg Q4H PRN ORAL For High Blood Pressure 07/02/18 12:00 07/31/18 15:44 Clopidogrel Bisulfate (Plavix) 75 mg DAILY ORAL 07/03/18 09:00 08/01/18 08:59 Dextrose (Dextrose 50%) 25 ml Q30M PRN IV Hypoglycemia 07/02/18 12:00 07/31/18 16:59 Dextrose (Dextrose 50%) 50 ml Q30M PRN IV Hypoglycemia 07/02/18 12:00 07/31/18 16:59 Docusate Sodium (Colace) 100 mg DAILY ORAL 07/03/18 09:00 08/01/18 08:59 Enalapril Maleate (Vasotec) 20 mg EVERY 12 HOURS ORAL 07/02/18 21:00 07/31/18 20:59 Haloperidol Lactate (Haldol) 5 mg Q6H PRN IM Agitation 07/02/18 11:45 08/01/18 11:44 Insulin Aspart (NovoLOG) BEFORE MEALS AND HS SUBQ 07/02/18 16:30 07/31/18 20:59 Magnesium Hydroxide (Mom) 30 ml DAILYPRN PRN ORAL Constipation 07/02/18 11:40 07/31/18 11:39 Multivitamins (Multivitamins) 1 tab DAILY ORAL 07/03/18 09:00 08/01/18 08:59 Sodium Phosphate (Fleet's Sodium Phosl Enema) 133 ml DAILYPRN PRN RECTAL Constipation 07/02/18 11:40 07/31/18 11:39 Vitamin A/Vitamin D (A & D Oint) 1 applic DAILY TOPIC 07/03/18 09:00 08/01/18 08:59 Assessment/Plan Problem List: (1) Toxic metabolic encephalopathy ICD Codes: G92 - Toxic encephalopathy SNOMED: 918548502 Assessment/Plan Haldol Im prn Haldol 5mg Im x 1 time the pt lacks capacity to make decisions. Zurdo villasenor Pantea MD Jul 02, 2018 20:49
[2018-07-03] VITALS: BP 146/88
[2018-07-03 04:00] VITALS: BP 154/85
[2018-07-03] MEDS: NovoLOG Insulin Flexpen SUBQ SCH ×4 (05:47→21:01)
[2018-07-03 08:00] VITALS: BP 151/102
[2018-07-03] MEDS: Vitamin A&D Oint 2oz Tube TOPIC SCH (09:40)
[2018-07-03] MEDS: Docusate 100mg cap ORAL SCH (09:41)
[2018-07-03] MEDS: Ascorbic Acid 500mg tab ORAL SCH (09:41)
[2018-07-03 12:00] VITALS: BP 165/89
[2018-07-03 16:00] VITALS: BP 153/99
--- NOTE | 2018-07-03 16:08 | General Progress Note ---
Assessment/Plan Problem List: (1) Hypertension ICD Codes: I10 - Essential (primary) hypertension SNOMED: 91569115 (2) Dilantin toxicity ICD Codes: T42.0X1A - Poisoning by hydantoin derivatives, accidental ( unintentional), initial encounter SNOMED: 99338696 (3) Toxic metabolic encephalopathy ICD Codes: G92 - Toxic encephalopathy SNOMED: 447115519 Status: stable Assessment/Plan added catapres patch cont iv prn bp meds follow up dilantin level resume dilantin when level is normal Subjective ROS Limited/Unobtainable: Yes Constitutional: Reports: malaise, weakness HEENT: Reports: no symptoms Cardiovascular: Reports: no symptoms Respiratory: Reports: no symptoms Gastrointestinal/Abdominal: Reports: difficulty swallowing Genitourinary: Reports: no symptoms Neurologic/Psychiatric: Reports: pre-existing deficit, seizure Endocrine: Reports: no symptoms Hematologic/Lymphatic: Reports: anemia Allergies: Coded Allergies: No Known Allergies (Verified , 06/01/08) All Systems: reviewed and negative except above Subjective no events. refusing meds at times. bp remains high. labs pending for today. transferred to monitored bed to give iv bp meds(pt spitting out pills) Objective Last 24 Hour Vital Signs Date Time Temp Pulse Resp B/P (MAP) Pulse Ox O2 Delivery O2 Flow Rate FiO2 07/03/18 12:00 96.1 101 18 165/89 (114) 95 07/03/18 12:00 95 07/03/18 09:54 102 151/102 07/03/18 09:40 151/102 07/03/18 09:00 Room Air 07/03/18 08:00 97.0 102 18 151/102 (118) 95 07/03/18 08:00 95 07/03/18 04:00 97.9 95 19 154/85 (108) 95 07/03/18 00:00 97.8 97 19 146/88 (107) 96 07/02/18 21:00 Room Air 07/02/18 20:49 148/86 07/02/18 20:00 97.3 97 19 148/86 (106) 94 07/02/18 20:00 95 Intake and Output 07/02/18 07/03/18 19:00 07:00 # Voids 1 1 # Bowel Movements 1 Height (Feet): 5 Height (Inches): 8.00 Weight (Pounds): 165 General Appearance: WD/WN, lethargic, confused Neck: supple Cardiovascular: regular rhythm Respiratory/Chest: chest wall non-tender, lungs clear, normal breath sounds, no respiratory distress, no accessory muscle use Abdomen: normal bowel sounds, non tender, soft, no organomegaly Edema: no edema noted Arm (L), no edema noted Arm (R), no edema noted Leg (L), no edema noted Leg (R), no edema noted Pedal (L), no edema noted Pedal (R), no edema noted Generalized Neurologic: motor weakness, aphasia Burt Russell MD Jul 03, 2018 16:08
[2018-07-03 20:00] VITALS: BP 136/89
[2018-07-04] VITALS: BP 148/92
[2018-07-04 04:00] VITALS: BP 149/94
[2018-07-04] MEDS: NovoLOG Insulin Flexpen SUBQ SCH ×4 (05:58→21:54)
[2018-07-04 08:00] VITALS: BP 161/100
[2018-07-04 08:36] LABS: ALANINE AMINOTRANSFERASE 22 U/L (12-78); ALBUMIN 3.4 G/DL (3.4-5.0); ALBUMIN/GLOBULIN RATIO 0.9 (1.0-2.7); ALKALINE PHOSPHATASE 151 U/L (46-116); ANION GAP 8 mmol/L (5-15); ASPARTATE AMINO TRANSFERASE 27 U/L (15-37); BILIRUBIN,TOTAL 0.6 MG/DL (0.2-1.0); BLOOD UREA NITROGEN 31 mg/dL (7-18); CALCIUM 9.7 MG/DL (8.5-10.1); CARBON DIOXIDE 27 MMOL/L (21-32); CHLORIDE 112 MMOL/L (98-107); POTASSIUM 3.6 MMOL/L (3.5-5.1); SODIUM 147 MMOL/L (136-145)
--- NOTE | 2018-07-04 09:51 | General Progress Note ---
Assessment/Plan Problem List: (1) Hypertension ICD Codes: I10 - Essential (primary) hypertension SNOMED: 69230324 (2) Dilantin toxicity ICD Codes: T42.0X1A - Poisoning by hydantoin derivatives, accidental ( unintentional), initial encounter SNOMED: 94972000 (3) Toxic metabolic encephalopathy ICD Codes: G92 - Toxic encephalopathy SNOMED: 596297969 Status: stable, progressing Assessment/Plan added catapres patch cont iv prn bp meds follow up dilantin level resume dilantin when level is normal check swallow ivf added repeat bmp in am Subjective ROS Limited/Unobtainable: No Constitutional: Reports: malaise, weakness HEENT: Reports: no symptoms Cardiovascular: Reports: no symptoms Respiratory: Reports: no symptoms Gastrointestinal/Abdominal: Reports: no symptoms Genitourinary: Reports: no symptoms Neurologic/Psychiatric: Reports: pre-existing deficit Endocrine: Reports: no symptoms Hematologic/Lymphatic: Reports: no symptoms Allergies: Coded Allergies: No Known Allergies (Verified , 06/01/08) All Systems: reviewed and negative except above Subjective no events. labs noted. dilantin level remains elevated. Objective Last 24 Hour Vital Signs Date Time Temp Pulse Resp B/P (MAP) Pulse Ox O2 Delivery O2 Flow Rate FiO2 07/04/18 04:00 95 07/04/18 04:00 97.3 100 20 149/94 (112) 95 07/04/18 00:00 97.4 110 20 148/92 (110) 98 07/04/18 00:00 105 07/03/18 21:00 Room Air 07/03/18 20:58 136/89 07/03/18 20:00 97.6 110 20 136/89 (105) 93 07/03/18 20:00 110 07/03/18 18:18 148/93 07/03/18 16:00 100 07/03/18 16:00 97.3 111 20 153/99 (117) 95 07/03/18 12:00 96.1 101 18 165/89 (114) 95 07/03/18 12:00 95 07/03/18 09:54 102 151/102 Intake and Output 07/03/18 07/04/18 19:00 07:00 Intake Total 118 ml 120 ml Balance 118 ml 120 ml Intake Oral 118 ml 120 ml # Voids 3 1 # Bowel Movements 1 1 Laboratory Tests 07/03/18 17:55: Phenytoin (Dilantin) Level 23.9H 07/04/18 06:35: Phenytoin (Dilantin) Level 23.9H, Sodium Level 147H, Potassium Level 3.6, Chloride Level 112H, Carbon Dioxide Level 27, Anion Gap 8, Blood Urea Nitrogen 31H, Creatinine 1.0, Estimat Glomerular Filtration Rate , Glucose Level 133H, Calcium Level 9.7, Total Bilirubin 0.6, Aspartate Amino Transf (AST/SGOT) 27, Alanine Aminotransferase (ALT/SGPT) 22, Alkaline Phosphatase 151H, Total Protein 7.3, Albumin 3.4, Globulin 3.9, Albumin/Globulin Ratio 0.9L Height (Feet): 5 Height (Inches): 8.00 Weight (Pounds): 165 Objective General Appearance: WD/WN, lethargic, confused Neck: supple Cardiovascular: regular rhythm Respiratory/Chest: chest wall non-tender, lungs clear, normal breath sounds, no respiratory distress, no accessory muscle use Abdomen: normal bowel sounds, non tender, soft, no organomegaly Edema: no edema noted Arm (L), no edema noted Arm (R), no edema noted Leg (L), no edema noted Leg (R), no edema noted Pedal (L), no edema noted Pedal (R), no edema noted Generalized Neurologic: motor weakness, aphasia Burt Russell MD Jul 04, 2018 09:51
[2018-07-04] MEDS: Docusate 100mg cap ORAL SCH (10:48)
[2018-07-04] MEDS: Ascorbic Acid 500mg tab ORAL SCH (10:49)
[2018-07-04] MEDS: Vitamin A&D Oint 2oz Tube TOPIC SCH (10:52)
[2018-07-04 12:00] VITALS: BP 133/86
[2018-07-04 16:00] VITALS: BP 135/86
--- NOTE | 2018-07-04 18:34 | General Progress Note ---
Assessment/Plan Problem List: (1) Toxic metabolic encephalopathy ICD Codes: G92 - Toxic encephalopathy SNOMED: 203249983 Status: unchanged Assessment/Plan Haldol Im prn Haldol 5mg Im x 1 time the pt lacks capacity to make decisions. cont restraints, Subjective Date patient seen: Jul 03, 2018 Allergies: Coded Allergies: No Known Allergies (Verified , 06/01/08) Subjective the pt cont to have episodes of agitation and is confused. Objective Last 24 Hour Vital Signs Date Time Temp Pulse Resp B/P (MAP) Pulse Ox O2 Delivery O2 Flow Rate FiO2 07/04/18 16:00 98.0 108 21 135/86 (102) 96 07/04/18 12:00 98.0 110 21 133/86 (102) 94 07/04/18 11:41 110 07/04/18 10:49 161/100 07/04/18 10:49 111 161/100 07/04/18 09:00 Room Air 07/04/18 08:00 97.1 111 20 161/100 (120) 96 07/04/18 04:00 95 07/04/18 04:00 97.3 100 20 149/94 (112) 95 07/04/18 00:00 97.4 110 20 148/92 (110) 98 07/04/18 00:00 105 07/03/18 21:00 Room Air 07/03/18 20:58 136/89 07/03/18 20:00 97.6 110 20 136/89 (105) 93 07/03/18 20:00 110 Intake and Output 07/03/18 07/04/18 19:00 07:00 Intake Total 118 ml 120 ml Balance 118 ml 120 ml Intake Oral 118 ml 120 ml # Voids 3 1 # Bowel Movements 1 1 Laboratory Tests 07/04/18 06:35: Sodium Level 147H, Potassium Level 3.6, Chloride Level 112H, Carbon Dioxide Level 27, Anion Gap 8, Blood Urea Nitrogen 31H, Creatinine 1.0, Estimat Glomerular Filtration Rate , Glucose Level 133H, Calcium Level 9.7, Total Bilirubin 0.6, Aspartate Amino Transf (AST/SGOT) 27, Alanine Aminotransferase ( ALT/SGPT) 22, Alkaline Phosphatase 151H, Total Protein 7.3, Albumin 3.4, Globulin 3.9, Albumin/Globulin Ratio 0.9L, Phenytoin (Dilantin) Level 23.9H Height (Feet): 5 Height (Inches): 8.00 Weight (Pounds): 165 General Appearance: alert, confused, agitated Fabby Renner MD Jul 04, 2018 18:34
[2018-07-04 20:00] VITALS: BP 158/108
[2018-07-05] VITALS: BP 135/94
[2018-07-05 04:00] VITALS: BP 138/87
[2018-07-05] MEDS: NovoLOG Insulin Flexpen SUBQ SCH ×4 (06:47→21:00)
[2018-07-05 08:00] VITALS: BP 126/79
[2018-07-05 08:30] LABS: BASOPHILS % (AUTO) 0.7 % (0.0-2.0); EOSINOPHILS % (AUTO) 1.4 % (0.0-3.0); HEMATOCRIT 46.8 % (42.0-52.0); HEMOGLOBIN 15.4 G/DL (14.2-18.0); LYMPHOCYTES % (AUTO) 28.8 % (20.0-45.0); MEAN CORPUSCULAR VOLUME 91 FL (80-99); MONOCYTES % (AUTO) 9.3 % (1.0-10.0); NEUTROPHILS % (AUTO) 59.8 % (45.0-75.0); PLATELET COUNT 218 K/UL (150-450); RED BLOOD COUNT 5.14 M/UL (4.70-6.10); RED CELL DISTRIBUTION WIDTH 14.3 % (11.6-14.8); WHITE BLOOD COUNT 7.8 K/UL (4.8-10.8)
[2018-07-05 08:46] LABS: ALANINE AMINOTRANSFERASE 21 U/L (12-78); ALBUMIN 3.2 G/DL (3.4-5.0); ALBUMIN/GLOBULIN RATIO 0.8 (1.0-2.7); ALKALINE PHOSPHATASE 143 U/L (46-116); ANION GAP 8 mmol/L (5-15); ASPARTATE AMINO TRANSFERASE 21 U/L (15-37); BILIRUBIN,TOTAL 0.5 MG/DL (0.2-1.0); BLOOD UREA NITROGEN 33 mg/dL (7-18); CALCIUM 9.5 MG/DL (8.5-10.1); CARBON DIOXIDE 27 MMOL/L (21-32); CHLORIDE 110 MMOL/L (98-107); POTASSIUM 3.8 MMOL/L (3.5-5.1); SODIUM 145 MMOL/L (136-145)
[2018-07-05] MEDS ORDERED: DILANTIN100 MG ORAL (08:59)
[2018-07-05] MEDS: Ascorbic Acid 500mg tab ORAL SCH (09:43)
[2018-07-05] MEDS: Docusate 100mg cap ORAL SCH (09:43)
[2018-07-05] MEDS: Vitamin A&D Oint 2oz Tube TOPIC SCH (09:45)
[2018-07-05] MEDS ORDERED: KEPPRA500 M4 ORAL (10:12)
--- NOTE | 2018-07-05 10:18 | General Progress Note ---
Assessment/Plan Problem List: (1) Hypertension ICD Codes: I10 - Essential (primary) hypertension SNOMED: 93685277 (2) Dilantin toxicity ICD Codes: T42.0X1A - Poisoning by hydantoin derivatives, accidental ( unintentional), initial encounter SNOMED: 36246528 (3) Toxic metabolic encephalopathy ICD Codes: G92 - Toxic encephalopathy SNOMED: 183203585 Status: stable Assessment/Plan neuro eval pending kera trial family does not want pt on dilantin bp rx compliance stressed Subjective ROS Limited/Unobtainable: No Constitutional: Reports: malaise, weakness HEENT: Reports: no symptoms Cardiovascular: Reports: no symptoms Respiratory: Reports: no symptoms Gastrointestinal/Abdominal: Reports: no symptoms Genitourinary: Reports: no symptoms Neurologic/Psychiatric: Reports: pre-existing deficit, seizure Endocrine: Reports: no symptoms Hematologic/Lymphatic: Reports: no symptoms Allergies: Coded Allergies: No Known Allergies (Verified , 06/01/08) All Systems: reviewed and negative except above Subjective no events. labs noted. dilantin level better now. d/w family at length. does not pt resumed on dilantin. Objective Last 24 Hour Vital Signs Date Time Temp Pulse Resp B/P (MAP) Pulse Ox O2 Delivery O2 Flow Rate FiO2 07/05/18 09:44 126/79 07/05/18 09:44 88 126/79 07/05/18 09:00 Room Air 07/05/18 08:00 96.4 88 18 126/79 (95) 93 07/05/18 04:00 93 07/05/18 04:00 98.0 96 18 138/87 (104) 95 07/05/18 00:00 85 07/05/18 00:00 72 07/05/18 00:00 98.1 106 19 135/94 (108) 97 07/04/18 21:50 158/108 07/04/18 21:00 Room Air 07/04/18 20:00 98.3 108 18 158/108 (125) 95 07/04/18 20:00 95 07/04/18 16:00 98.0 108 21 135/86 (102) 96 07/04/18 12:00 98.0 110 21 133/86 (102) 94 07/04/18 11:41 110 07/04/18 10:49 161/100 12/30/18 10:49 111 161/100 Intake and Output 07/04/18 07/05/18 18:59 06:59 # Bowel Movements 1 Laboratory Tests 07/05/18 07:17: White Blood Count 7.8, Red Blood Count 5.14, Hemoglobin 15.4, Hematocrit 46.8, Mean Corpuscular Volume 91, Mean Corpuscular Hemoglobin 29.9, Mean Corpuscular Hemoglobin Concent 32.8, Red Cell Distribution Width 14.3, Platelet Count 218, Mean Platelet Volume 6.8, Neutrophils (%) (Auto) 59.8, Lymphocytes (%) (Auto) 28.8, Monocytes (%) (Auto) 9.3, Eosinophils (%) (Auto) 1.4, Basophils (%) (Auto ) 0.7, Sodium Level 145, Potassium Level 3.8, Chloride Level 110H, Carbon Dioxide Level 27, Anion Gap 8, Blood Urea Nitrogen 33H, Creatinine 1.0, Estimat Glomerular Filtration Rate , Glucose Level 147H, Calcium Level 9.5, Total Bilirubin 0.5, Aspartate Amino Transf (AST/SGOT) 21, Alanine Aminotransferase ( ALT/SGPT) 21, Alkaline Phosphatase 143H, Total Protein 7.0, Albumin 3.2L, Globulin 3.8, Albumin/Globulin Ratio 0.8L, Phenytoin (Dilantin) Level 16.7 Height (Feet): 5 Height (Inches): 8.00 Weight (Pounds): 165 Objective General Appearance: WD/WN, lethargic, confused Neck: supple Cardiovascular: regular rhythm Respiratory/Chest: chest wall non-tender, lungs clear, normal breath sounds, no respiratory distress, no accessory muscle use Abdomen: normal bowel sounds, non tender, soft, no organomegaly Edema: no edema noted Arm (L), no edema noted Arm (R), no edema noted Leg (L), no edema noted Leg (R), no edema noted Pedal (L), no edema noted Pedal (R), no edema noted Generalized Neurologic: motor weakness, aphasia Burt Russell MD Jul 05, 2018 10:18
[2018-07-05 12:00] VITALS: BP 128/78
--- NOTE | 2018-07-05 12:13 | Diagnostic Imaging Report ---
Indications: Altered mental status Technique: Spiral acquisitions obtained through the brain. Angled axial and coronal 5 x 5 mm slices were reconstructed. Total dose length product 1383.12 mGycm. CTDI vol(s) 70.38 mGy. Dose reduction achieved using automated exposure control Comparison: 04/14/2015 Findings: Again demonstrated is a left frontotemporoparietal craniotomy/craniectomy. Again demonstrated is extensive encephalomalacia of the left temporal, parietal, and posterior frontal lobes, appearing unchanged. This results in considerable ex vacuo dilatation of the left lateral ventricle. There is atrophy of the left cerebral peduncle, presumably related. There is also generalized age-related volume loss. No acute intracranial hemorrhage or edema. No mass effect nor midline shift. Visualized orbits and sinuses are unremarkable. Impression: Extensive left convexity encephalomalacia, likely old middle cerebral artery distribution infarct versus other insult. Left convexity prior craniotomy/craniectomy again demonstrated Negative for acute intracranial bleed or mass effect. No significant interim change from 04/14/[address] scanner at [facility] is accredited by the [employer] and the scans are performed using protocols designed to limit radiation exposure to as low as reasonably achievable to attain images of sufficient resolution adequate for diagnostic evaluation.
[2018-07-05 16:30] VITALS: BP 112/78
--- NOTE | 2018-07-05 17:18 | Consultation ---
Consult Note Consult Note NEUROLOGY CONSULTATION: Full note dictated #[id number] 83 y/o, RH, HM with PH of HTN, DL, left sided ICH for which he needed a craniotomy and an unknown type of seizure disorder for which he is Dilantin. He lives in a [place] where he was noted to be more somnolent. He had a Dilantin level drawn which was elevated. He was transferred to [facility] [place] and [place]. As per Dr. Russell he has had multiple episodes of Dilantin toxicity. A decision has been made to change his antiseizure medicine. ON EXAM: Left FT craniotomy defect. Tracheostomy scar. Aphasic Right VII central Bilateral ankle contractures. Wasted right UE. Right UE plegia with minimal right LE movements Brisker right DTRs Extensor right plantar. IMPRESSION: 1. Left brain ICH in past. 2. 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 4. Multiple episodes of Dilantin toxicity. REC: Agree with changing anti-seizure medicine to Keppra 750 mg q 12 H as patient weighs 75 Kg. Observe Yamil Steinberg M.D., M.S.P.H. Yamil Steinberg MD Jul 05, 2018 17:18
[2018-07-05 20:00] VITALS: BP 141/102
--- NOTE | 2018-07-05 20:00 | Consultation ---
DATE OF CONSULTATION: 07/05/2018 NEUROLOGY CONSULTATION CONSULTING PHYSICIAN: Yamil Steinberg M.D. REQUESTING PHYSICIAN: Burt Russell M.D. HISTORY: Mr. 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 He apparently lives in a [place] where he was noted to be more somnolent than usual and as a result of that, the Dilantin level was checked and was elevated. He was then transferred to [facility] Emergency Room and admitted. On admission, on 07/01/2018, his Dilantin level was 32.7. However, as per the emergency room physician, he did not demonstrate any signs of Dilantin toxicity. Since then, his Dilantin levels has been dropped. This consultation was requested to evaluate the patient from a neurological point of view and change his anticonvulsant to another drug as the patient has apparently had multiple episodes of Dilantin toxicity. The patient himself was unable to give me any history. 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 FAMILY HISTORY: Unavailable. PERSONAL HISTORY: Home: He lives in a detention. Work: He is unemployed. Habits: None at this point in time. PRESENT MEDICATIONS: Clonidine, Norvasc, vitamin C, Plavix, Colace, multivitamins, Lipitor, Vasotec, insulin, Haldol, [place], milk of magnesia, and Tylenol. PHYSICAL EXAMINATION: GENERAL: He is a well-developed and well-nourished gentleman, lying in bed, in no acute distress. VITAL SIGNS: Pulse 84/minute, blood pressure 128/78 mmHg, respirations 20/minute, and temperature 96.8 degrees Fahrenheit. HEAD: He had left frontotemporal craniotomy defect. NECK: No neck rigidity was observed. he had a tracheostomy scar. EENT: Benign. NEUROLOGIC EXAMINATION: MENTAL STATUS EXAMINATION: He was awake and alert. He was severely aphasic and thus further mental status testing was impossible. SPEECH: Could not be tested. LANGUAGE: He was able to follow a few simple commands, but was unable to express himself in any way. CRANIAL NERVE EXAMINATION: II: He had right visual field deficit to threat. He did blink on left-sided stimulation. III, IV & : External ocular movements were present. The pupils were 3 mm in diameter and reactive sluggishly to light. V & VII: The corneal reflex was diminished on the right side compared to the left. In addition, he also had a right VII central facial paresis. VIII: He did respond to sounds bilaterally and had no nystagmus. IX: The palate moved symmetrically on phonation. X: He had no hoarseness of voice. XI: The sternocleidomastoids and trapezii functioned normally. XII: The tongue was in the midline without any fasciculations or atrophy. MOTOR SYSTEM: The tone was spastic on the right side and in the left lower extremity. Examination of muscle mass revealed significant wasting of the right upper extremity and both lower extremities. Examination of power could not be performed on individual muscle groups because of his inability to cooperate. He had a right upper extremity plegia, severe right lower extremity paresis, and mild left lower extremity paresis. SENSORY EXAMINATION: He responded appropriately to deep pain. He was unable to cooperate for other sensory modalities. REFLEXES: 2++ on the right and 1+ on the left at the biceps, triceps, brachioradialis, and knees. 0 at both ankles. The plantar response was extensor on the right and flexor on the left. COORDINATION, STANCE & GAIT: Could not be tested. DIAGNOSTIC IMPRESSION: 1. Mr. Narendra Ruiz is an 83-year-old, right-handed, gentleman, with a past history of hypertension, dyslipidemia, left-sided intracerebral hemorrhage for which he has needed a craniotomy, unknown type of seizure disorder, and multiple prior episodes of Dilantin toxicity, who was hospitalized for an episode of Dilantin toxicity characterized by increased somnolence. 2. On neurological examination, at this time, he does demonstrate a left frontotemporal craniotomy defect and a tracheostomy scar. She is significantly aphasic, has a right VII central facial paresis, has bilateral ankle cord contractures, wasted right upper extremity, right upper extremity plegia, right lower extremity paresis, and left lower extremity paresis of a mild degree, brisker deep tendon reflexes on the right side compared to the left, and extensor plantar response on the right side. He is unable to stand and walk. 3. Laboratory tests done thus far have revealed a relatively normal CBC. His latest chemistry panel revealed a BUN elevated to 33 with a creatinine of 1.0. His glucoses are running high. The last glucose was 147. His alkaline phosphatase was high at 143. His albumin was low at 3.2 and his Dilantin level on admission was 32.7 and it has dropped down to 16.[address] scan of the brain without contrast performed on 07/05/2018, revealed severe left brain encephalomalacia in the distribution of the left middle cerebral artery territory. In addition, a left frontotemporal craniotomy scar was also seen. 5. 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 RECOMMENDATIONS: 1. Agree with management thus far. 2. The patient's Dilantin can be stopped at this point in time. 3. His antiseizure medicine will be changed to Keppra 750 mg q.12 hours as the patient weighs close to 75 kg. 4. The patient should be observed and depending on how he fares, further recommendations will be given. Thank you for entrusting me with the care of Mr. Ruiz. I shall follow him with you. Yamil Steinberg M.D., M.S.P.H. DR: STEVAN JOB#: [id number] SANTI
--- NOTE | 2018-07-05 21:00 | Discharge Summary ---
DATE OF ADMISSION: 07/01/2018 DATE OF DISCHARGE: 07/05/2018 ADMISSION DIAGNOSES: 1. Dilantin toxicity. 2. History of stroke. 3. Encephalopathy. 4. Hypertensive heart disease. 5. Diabetes. DISCHARGE DIAGNOSES: 1. Dilantin toxicity. 2. History of stroke. 3. Encephalopathy. 4. Hypertensive heart disease. 5. Diabetes. BRIEF HISTORY AND HOSPITAL COURSE: The patient was admitted with complaints of altered mental status and Dilantin toxicity. He was initially admitted to a monitored bed. He was hydrated. He was continued on oral feeding and is regular outpatient antihypertensive regimen. Dilantin level was followed and once in the therapeutic range his Dilantin was resumed. On discharge, he was stable. [facility]. He will follow up in one to two days by his PMD. DISCHARGE MEDICATIONS: Please see discharge list for discharge medications. DIET: Cardiac and diabetic diet. ACTIVITY: Ad-gage. Burt Russell M.D. DR: JORGE JOB#: [id number] CC:
[2018-07-05] MEDS: levETIRAcetam 500mg/5ml Liquid ORAL SCH (21:51)
[2018-07-06] VITALS: BP 126/81
--- NOTE | 2018-07-06 01:35 | General Progress Note ---
Assessment/Plan Problem List: (1) Toxic metabolic encephalopathy ICD Codes: G92 - Toxic encephalopathy SNOMED: 546957215 Status: stable Assessment/Plan Haldol Im prn Haldol 5mg Im x 1 time the pt lacks capacity to make decisions. cont restraints, Subjective Date patient seen: Jul 05, 2018 Allergies: Coded Allergies: No Known Allergies (Verified , 06/01/08) Subjective the pt cont to have episodes of agitation and is confused. Objective Last 24 Hour Vital Signs Date Time Temp Pulse Resp B/P (MAP) Pulse Ox O2 Delivery O2 Flow Rate FiO2 07/05/18 21:52 112/78 07/05/18 20:00 88 07/05/18 16:30 96.9 96 20 112/78 (89) 96 07/05/18 16:00 84 07/05/18 12:00 96.8 87 20 128/78 (95) 95 07/05/18 12:00 83 07/05/18 09:44 126/79 07/05/18 09:44 88 126/79 07/05/18 09:00 Room Air 07/05/18 08:00 96.4 88 18 126/79 (95) 93 07/05/18 08:00 77 07/05/18 04:00 93 07/05/18 04:00 98.0 96 18 138/87 (104) 95 Intake and Output 07/05/18 07/06/18 19:00 07:00 Intake Total 75 ml Balance 75 ml Intake Oral 75 ml # Voids 1 # Bowel Movements 2 Laboratory Tests 07/05/18 07:17: White Blood Count 7.8, Red Blood Count 5.14, Hemoglobin 15.4, Hematocrit 46.8, Mean Corpuscular Volume 91, Mean Corpuscular Hemoglobin 29.9, Mean Corpuscular Hemoglobin Concent 32.8, Red Cell Distribution Width 14.3, Platelet Count 218, Mean Platelet Volume 6.8, Neutrophils (%) (Auto) 59.8, Lymphocytes (%) (Auto) 28.8, Monocytes (%) (Auto) 9.3, Eosinophils (%) (Auto) 1.4, Basophils (%) (Auto ) 0.7, Sodium Level 145, Potassium Level 3.8, Chloride Level 110H, Carbon Dioxide Level 27, Anion Gap 8, Blood Urea Nitrogen 33H, Creatinine 1.0, Estimat Glomerular Filtration Rate , Glucose Level 147H, Calcium Level 9.5, Total Bilirubin 0.5, Aspartate Amino Transf (AST/SGOT) 21, Alanine Aminotransferase ( ALT/SGPT) 21, Alkaline Phosphatase 143H, Total Protein 7.0, Albumin 3.2L, Globulin 3.8, Albumin/Globulin Ratio 0.8L, Phenytoin (Dilantin) Level 16.7 Height (Feet): 5 Height (Inches): 8.00 Weight (Pounds): 165 General Appearance: alert, confused, agitated Fabby Renner MD Jul 06, 2018 01:35
[2018-07-06 04:00] VITALS: BP 165/95
[2018-07-06] MEDS: NovoLOG Insulin Flexpen SUBQ SCH ×4 (06:30→21:00)
[2018-07-06 08:00] VITALS: BP 113/69
[2018-07-06] MEDS: Docusate 100mg cap ORAL SCH (09:00)
[2018-07-06] MEDS: Vitamin A&D Oint 2oz Tube TOPIC SCH (09:35)
[2018-07-06] MEDS: levETIRAcetam 500mg/5ml Liquid ORAL SCH ×2 (09:35→21:18)
[2018-07-06] MEDS: Ascorbic Acid 500mg tab ORAL SCH (09:37)
--- NOTE | 2018-07-06 09:57 | General Progress Note ---
Assessment/Plan Problem List: (1) Hypertension ICD Codes: I10 - Essential (primary) hypertension SNOMED: 58109212 (2) Dilantin toxicity ICD Codes: T42.0X1A - Poisoning by hydantoin derivatives, accidental ( unintentional), initial encounter SNOMED: 25860193 (3) Toxic metabolic encephalopathy ICD Codes: G92 - Toxic encephalopathy SNOMED: 732152010 Status: stable, progressing Assessment/Plan neuro eval appreciated keppra trial family does not want pt on dilantin bp rx compliance stressed dc planning if takes po meds Subjective ROS Limited/Unobtainable: No Constitutional: Reports: malaise, weakness HEENT: Reports: no symptoms Cardiovascular: Reports: no symptoms Respiratory: Reports: no symptoms Gastrointestinal/Abdominal: Reports: poor fluid intake Genitourinary: Reports: no symptoms Neurologic/Psychiatric: Reports: pre-existing deficit, seizure Endocrine: Reports: no symptoms Hematologic/Lymphatic: Reports: no symptoms Allergies: Coded Allergies: No Known Allergies (Verified , 06/01/08) All Systems: reviewed and negative except above Subjective no events. labs noted. neuro appreciated. refusing meds Objective Last 24 Hour Vital Signs Date Time Temp Pulse Resp B/P (MAP) Pulse Ox O2 Delivery O2 Flow Rate FiO2 07/06/18 09:35 113/69 07/06/18 09:35 90 113/69 07/06/18 08:00 96.6 90 20 113/69 (84) 98 07/06/18 04:00 98.0 97 20 165/95 (118) 96 07/06/18 00:00 96.4 88 19 126/81 (96) 94 07/05/18 21:52 112/78 07/05/18 21:00 Room Air 07/05/18 20:00 88 07/05/18 20:00 96.9 82 18 141/102 (115) 92 07/05/18 16:30 96.9 96 20 112/78 (89) 96 07/05/18 16:00 84 07/05/18 12:00 96.8 87 20 128/78 (95) 95 07/05/18 12:00 83 Intake and Output 07/05/18 07/06/18 19:00 07:00 Intake Total 75 ml Balance 75 ml Intake Oral 75 ml # Voids 1 1 # Bowel Movements 2 1 Height (Feet): 5 Height (Inches): 8.00 Weight (Pounds): 165 Objective General Appearance: WD/WN, lethargic, confused Neck: supple Cardiovascular: regular rhythm Respiratory/Chest: chest wall non-tender, lungs clear, normal breath sounds, no respiratory distress, no accessory muscle use Abdomen: normal bowel sounds, non tender, soft, no organomegaly Edema: no edema noted Arm (L), no edema noted Arm (R), no edema noted Leg (L), no edema noted Leg (R), no edema noted Pedal (L), no edema noted Pedal (R), no edema noted Generalized Neurologic: motor weakness, aphasia Burt Russell MD Jul 06, 2018 09:57
[2018-07-06] MEDS ORDERED: levETIRAcetam 500mg/NS100ml 100 ML IVPB ONE (11:00)
[2018-07-06 12:00] VITALS: BP 115/75
--- NOTE | 2018-07-06 13:09 | Neurology Progress Note ---
Interim History Interim History Interim History Mr. Ruiz is non-verbal. He is unable to tell me how he feels. He has been seizure-free. He is tolerating the Keppra well. He continues to be aphasic, plegic in the right upper extremity, severely paretic in the right lower extremity and less paretic in the left lower extremity. Review of Systems Neuro Review of Systems Unable to obtain. Objective Physical Exam Last Vital Signs Date Time Temp Pulse Resp B/P (MAP) Pulse Ox O2 Delivery O2 Flow Rate FiO2 07/06/18 09:35 113/69 07/06/18 09:35 90 07/06/18 08:00 96.6 20 98 07/05/18 21:00 Room Air Neurologic Exam Objective PHYSICAL EXAMINATION: GENERAL: He is a well-developed and well-nourished gentleman, lying in bed, in no acute distress. HEAD: He had left frontotemporal craniotomy defect. NECK: No neck rigidity was observed. he had a tracheostomy scar. EENT: Benign. NEUROLOGIC EXAMINATION: MENTAL STATUS EXAMINATION: He was awake and alert. He was severely aphasic and thus further mental status testing was impossible. SPEECH: Could not be tested. LANGUAGE: He was able to follow a few simple commands, but was unable to express himself in any way. CRANIAL NERVE EXAMINATION: II: He had right visual field deficit to threat. He did blink on left-sided stimulation. III, IV & : External ocular movements were present. The pupils were 3 mm in diameter and reactive sluggishly to light. V & VII: The corneal reflex was diminished on the right side compared to the left. In addition, he also had a right VII central facial paresis. VIII: He did respond to sounds bilaterally and had no nystagmus. IX: The palate moved symmetrically on phonation. X: He had no hoarseness of voice. XI: The sternocleidomastoids and trapezii functioned normally. XII: The tongue was in the midline without any fasciculations or atrophy. MOTOR SYSTEM: The tone was spastic on the right side and in the left lower extremity. Examination of muscle mass revealed significant wasting of the right upper extremity and both lower extremities. Examination of power could not be performed on individual muscle groups because of his inability to cooperate. He had a right upper extremity plegia, severe right lower extremity paresis, and mild left lower extremity paresis. SENSORY EXAMINATION: He responded appropriately to deep pain. He was unable to cooperate for other sensory modalities. REFLEXES: 2++ on the right and 1+ on the left at the biceps, triceps, brachioradialis, and knees. 0 at both ankles. The plantar response was extensor on the right and flexor on the left. COORDINATION, STANCE & GAIT: Could not be tested. Impression/Recommendations Diagnostic Impression 1. Mr. Narendra Ruiz is an 83-year-old, right-handed, gentleman, with a past history of hypertension, dyslipidemia, left-sided intracerebral hemorrhage for which he has needed a craniotomy, unknown type of seizure disorder, and multiple prior episodes of Dilantin toxicity, who was hospitalized for an episode of Dilantin toxicity characterized by increased somnolence. 2. He is non-verbal. He is unable to tell me how he feels. He has been seizure- free. He is tolerating the Keppra well. He continues to be aphasic, plegic in the right upper extremity, severely paretic in the right lower extremity and less paretic in the left lower extremity. 3. On neurological examination, at this time, he does demonstrate a left frontotemporal craniotomy defect and a tracheostomy scar. He is significantly aphasic, has a right VII central facial paresis, has bilateral ankle cord contractures, wasted right upper extremity, right upper extremity plegia, right lower extremity paresis, and left lower extremity paresis of a mild degree, brisker deep tendon reflexes on the right side compared to the left, and extensor plantar response on the right side. He is unable to stand and walk. 4. Laboratory tests done thus far have revealed a relatively normal CBC. His latest chemistry panel revealed a BUN elevated to 33 with a creatinine of 1.0. His glucoses are running high. The last glucose was 147. His alkaline phosphatase was high at 143. His albumin was low at 3.2 and his Dilantin level on admission was 32.7 and it has dropped down to 16.[address] scan of the brain without contrast performed on 07/05/2018, revealed severe left brain encephalomalacia in the distribution of the left middle cerebral artery territory. In addition, a left frontotemporal craniotomy scar was also seen. 6. 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 7. He is tolerating the Keppra well and continues to be seizure-free. Recommendations 1. Continue present management. 2. Continue Keppra 750 mg q.12 hours. 3. Observe. Yamil Steinberg M.D., M.S.P.H. Yamil Steinberg MD Jul 06, 2018 13:09
[2018-07-06 16:00] VITALS: BP 127/82
[2018-07-06 20:00] VITALS: BP 127/74
[2018-07-07] VITALS: BP 126/68
[2018-07-07 04:00] VITALS: BP 121/72
[2018-07-07] MEDS: NovoLOG Insulin Flexpen SUBQ SCH ×2 (06:19→12:30)
[2018-07-07 08:00] VITALS: BP 113/70
--- NOTE | 2018-07-07 08:59 | General Progress Note ---
Assessment/Plan Problem List: (1) Hypertension ICD Codes: I10 - Essential (primary) hypertension SNOMED: 98653257 (2) Dilantin toxicity ICD Codes: T42.0X1A - Poisoning by hydantoin derivatives, accidental ( unintentional), initial encounter SNOMED: 99372482 (3) Toxic metabolic encephalopathy ICD Codes: G92 - Toxic encephalopathy SNOMED: 791043076 Status: stable, progressing Assessment/Plan neuro eval appreciated keppra trial family does not want pt on dilantin bp rx compliance stressed dc planning if takes po meds Subjective ROS Limited/Unobtainable: No Constitutional: Reports: malaise, weakness HEENT: Reports: no symptoms Cardiovascular: Reports: no symptoms Respiratory: Reports: no symptoms Gastrointestinal/Abdominal: Reports: difficulty swallowing Genitourinary: Reports: no symptoms Neurologic/Psychiatric: Reports: pre-existing deficit, seizure Endocrine: Reports: no symptoms Hematologic/Lymphatic: Reports: no symptoms Allergies: Coded Allergies: No Known Allergies (Verified , 06/01/08) All Systems: reviewed and negative except above Subjective no events. labs noted. neuro appreciated. no szs. family does not want to go back to [place]. refusing meds but more compliant Objective Last 24 Hour Vital Signs Date Time Temp Pulse Resp B/P (MAP) Pulse Ox O2 Delivery O2 Flow Rate FiO2 07/07/18 04:00 97.2 94 18 121/72 (88) 97 07/07/18 04:00 94 07/07/18 00:00 96.4 88 19 126/68 (87) 94 07/07/18 00:00 83 07/06/18 21:19 127/82 07/06/18 21:00 Room Air 07/06/18 20:00 96.6 90 22 127/74 (91) 98 07/06/18 20:00 85 07/06/18 16:00 96.9 99 20 127/82 (97) 99 07/06/18 15:38 82 07/06/18 12:00 97.2 99 20 115/75 (88) 97 07/06/18 11:37 99 07/06/18 09:35 113/69 07/06/18 09:35 90 113/69 Intake and Output 07/06/18 07/07/18 19:00 07:00 Intake Total 740 ml Balance 740 ml Intake Oral 740 ml # Voids 3 2 # Bowel Movements 2 1 Height (Feet): 5 Height (Inches): 8.00 Weight (Pounds): 160 Objective General Appearance: WD/WN, lethargic, confused Neck: supple Cardiovascular: regular rhythm Respiratory/Chest: chest wall non-tender, lungs clear, normal breath sounds, no respiratory distress, no accessory muscle use Abdomen: normal bowel sounds, non tender, soft, no organomegaly Edema: no edema noted Arm (L), no edema noted Arm (R), no edema noted Leg (L), no edema noted Leg (R), no edema noted Pedal (L), no edema noted Pedal (R), no edema noted Generalized Neurologic: motor weakness, aphasia Burt Russell MD Jul 07, 2018 08:59
[2018-07-07] MEDS: Docusate 100mg cap ORAL SCH (09:50)
[2018-07-07] MEDS: Ascorbic Acid 500mg tab ORAL SCH (09:51)
[2018-07-07] MEDS: Vitamin A&D Oint 2oz Tube TOPIC SCH (09:56)
[2018-07-07] MEDS: levETIRAcetam 500mg/5ml Liquid ORAL SCH (09:56)
[2018-07-07 12:00] VITALS: BP 107/74
--- NOTE | 2018-07-07 12:16 | General Progress Note ---
Assessment/Plan Problem List: (1) Toxic metabolic encephalopathy ICD Codes: G92 - Toxic encephalopathy SNOMED: 941621859 Status: stable Assessment/Plan Haldol Im prn Haldol 5mg Im x 1 time the pt lacks capacity to make decisions. cont restraints, Subjective Neurologic/Psychiatric: Reports: anxiety, depressed Allergies: Coded Allergies: No Known Allergies (Verified , 06/01/08) Subjective the pt is confused and is calmer Objective Last 24 Hour Vital Signs Date Time Temp Pulse Resp B/P (MAP) Pulse Ox O2 Delivery O2 Flow Rate FiO2 07/07/18 09:00 113/70 07/07/18 09:00 60 113/70 07/07/18 08:30 Room Air 07/07/18 08:00 96.8 60 21 113/70 (84) 95 07/07/18 07:16 80 07/07/18 04:00 97.2 94 18 121/72 (88) 97 07/07/18 04:00 94 07/07/18 00:00 96.4 88 19 126/68 (87) 94 07/07/18 00:00 83 07/06/18 21:19 127/82 07/06/18 21:00 Room Air 07/06/18 20:00 96.6 90 22 127/74 (91) 98 07/06/18 20:00 85 07/06/18 16:00 96.9 99 20 127/82 (97) 99 07/06/18 15:38 82 Intake and Output 07/06/18 07/07/18 19:00 07:00 Intake Total 740 ml Balance 740 ml Intake Oral 740 ml # Voids 3 2 # Bowel Movements 2 1 Height (Feet): 5 Height (Inches): 8.00 Weight (Pounds): 160 General Appearance: confused, moderate distress, agitated Fabby Renner MD Jul 07, 2018 12:16
--- NOTE | 2018-07-08 08:42 | Discharge Summary ---
Discharge Summary Discharge Summary _ DATE OF ADMISSION: 07/01/2018 DATE OF DISCHARGE: 07/07/2018 Addendum to DC summary: Dilantin level normalized. Family did not want patient back on Dilantin. He was seen by neurologist. He was given Keppra 750 mg every 12 hours. Patient was tolerating Keppra well and continued to be seizure-free. He was eventually discharged back to [facility]. I have been assigned to dictate discharge summary on this account, and I was not involved in the patient's management. Jahaira Guzman NP Jul 08, 2018 08:42
== END 2018-07-07 15:12 | DRG 92 ==
LOC: EDUNIT# 12:16 → EDBD 12:16 → EMR 13:00 → 4E 13:05 → EDBEDREQ 13:18 → 2E 07-02 11:31
DX: G92 Toxic encephalopathy (principal); I69.251 Hemiplegia and hemiparesis following other nontraumatic intracranial hemorrhage affecting right dominant side; G40.802 Other epilepsy, not intractable, without status epilepticus; T42.0X5A Adverse effect of hydantoin derivatives, initial encounter; I11.9 Hypertensive heart disease without heart failure; E11.9 Type 2 diabetes mellitus without complications; I69.219 Unspecified symptoms and signs involving cognitive functions following other nontraumatic intracranial hemorrhage; I69.220 Aphasia following other nontraumatic intracranial hemorrhage; I69.298 Other sequelae of other nontraumatic intracranial hemorrhage; Z79.02 Long term (current) use of antithrombotics/antiplatelets; E78.5 Hyperlipidemia, unspecified; M24.572 Contracture, left ankle; M24.571 Contracture, right ankle
CPT/HCPCS: 36415; 70450; 80053; 80185; 82550; 82553; 82962; 83036; 85025; 87081; 93005; 99285; J1815

== ENCOUNTER 2020-03-21 19:08 | Inpatient (IN) | payer MEDICARE, OTHER ==
[~2020-03-21] VITALS: Ht 177.8 cm; Wt 72.5 kg
[~2020-03-21 19:08] MED LIST changes: +ACETAMINOPHEN325 M1 ORAL; +ASCORBIC ACID500 MG ORAL; +CLONIDINE HCL0.1 MG PO; +KEPPRA500 M4 ORAL; +NORVASC5 MG ORAL
--- NOTE | 2020-03-21 19:29 | Emergency Room Report ---
History of Present Illness General Chief Complaint: Dyspnea/Respdistress Source: Medical Record, EMS Present Illness HPI Patient is an 85-year-old male multiple medical history who was brought in by EMS from his extended care facility for hypoxia. EMS was called for low oxygen saturation. They state that when they arrived the patient's oxygen saturation was 94% on room air. Staff said the patient had a slight cough. And they wanted him transferred to the hospital for further treatment and evaluation. Patient is nonverbal. Unable to obtain further history at this time. PCP Dr. 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 Hx Seizures: Yes 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 Review of Systems All Other Systems: limited - non-verbal Physical Exam Vital Signs Date Time Temp Pulse Resp B/P (MAP) Pulse Ox O2 Delivery O2 Flow Rate FiO2 03/21/20 19:11 98.8 100 18 134/87 (103) 95 Room Air Sp02 EP Interpretation: reviewed, normal General Appearance: no apparent distress, Chronically Ill Head: normocephalic, atraumatic Neck: full range of motion, supple Respiratory: no respiratory distress, no accessory muscle use Cardiovascular #1: regular rate, rhythm Gastrointestinal: non tender, soft, overweight Rectal: deferred Musculoskeletal: other - Right upper extremity contracture chronic weakness Skin: no rash Lymphatic: no adenopathy Medical Decision Making Diagnostic Impression: Primary Impression: Leukocytosis Additional Impressions: Fever CHF (congestive heart failure) ER Course Patient's COVID 19 PCR negative. Blood culture sent. Pending UA. Condom catheter in place. Patient has white count of 22,000 and was febrile in the emergency room. Patient given Tylenol and started on vancomycin as well as cefepime. Patient's lactate is normal. BNP is almost 2000. Patient to be admitted for further treatment and evaluation. Laboratory Tests Test 03/21/20 19:48 White Blood Count 22.2 K/UL (4.8-10.8) *H Red Blood Count 5.04 M/UL (4.70-6.10) Hemoglobin 14.7 G/DL (14.2-18.0) Hematocrit 46.0 % (42.0-52.0) Mean Corpuscular Volume 91 FL (80-99) Mean Corpuscular Hemoglobin 29.1 PG (27.0-31.0) Mean Corpuscular Hemoglobin Concent 31.9 G/DL (32.0-36.0) L Red Cell Distribution Width 14.6 % (11.6-14.8) Platelet Count 162 K/UL (150-450) Mean Platelet Volume 7.7 FL (6.5-10.1) Neutrophils (%) (Auto) % (45.0-75.0) Lymphocytes (%) (Auto) % (20.0-45.0) Monocytes (%) (Auto) % (1.0-10.0) Eosinophils (%) (Auto) % (0.0-3.0) Basophils (%) (Auto) % (0.0-2.0) Differential Total Cells Counted 100 Neutrophils % (Manual) 80 % (45-75) H Lymphocytes % (Manual) 10 % (20-45) L Monocytes % (Manual) 4 % (1-10) Eosinophils % (Manual) 0 % (0-3) Basophils % (Manual) 0 % (0-2) Band Neutrophils 6 % (0-8) Platelet Estimate Adequate Platelet Morphology Normal Red Blood Cell Morphology Normal Prothrombin Time 13.5 SEC (9.30-11.50) H Prothrombin Time INR 1.2 (0.9-1.1) H Activated Partial Thromboplast Time 30 SEC (23-33) Sodium Level 140 MMOL/L (136-145) Potassium Level 3.7 MMOL/L (3.5-5.1) Chloride Level 104 MMOL/L (98-107) Carbon Dioxide Level 23 MMOL/L (21-32) Anion Gap 13 mmol/L (5-15) Blood Urea Nitrogen 34 mg/dL (7-18) H Creatinine 1.3 MG/DL (0.55-1.30) Estimated Glomerular Filtration Rate 52.7 mL/min (>60) Glucose Level 205 MG/DL (74-106) H Lactic Acid Level 1.70 mmol/L (0.4-2.0) Calcium Level 8.7 MG/DL (8.5-10.1) Magnesium Level 2.0 MG/DL (1.8-2.4) Total Bilirubin 1.6 MG/DL (0.2-1.0) H Direct Bilirubin 0.5 MG/DL (0.0-0.3) H Aspartate Amino Transferase (AST) 20 U/L (15-37) Alanine Aminotransferase (ALT) 20 U/L (12-78) Alkaline Phosphatase 89 U/L (46-116) Total Creatine Kinase 109 U/L (26-308) Troponin I 0.006 ng/mL (0.000-0.056) Pro-B-Type Natriuretic Peptide 1263 pg/mL (0-125) H Total Protein 7.9 G/DL (6.4-8.2) Albumin 3.0 G/DL (3.4-5.0) L Globulin 4.9 g/dL Albumin/Globulin Ratio 0.6 (1.0-2.7) L Microbiology Date/Time Source Procedure Growth Status 03/21/20 19:48 Nasopharynx SARS-CoV-2 RdRp Gene Assay - Final Complete EKG Diagnostic Results EKG Time: 19:31 EP Interpretation: Blanquita Julio MD Rate: tachycardiac - 126 bpm Rhythm: other - sinus tachycardia ST Segments: no acute changes Other Impression Right bundle branch block ASA given to the pt in ED: No Chest X-Ray Diagnostic Results Chest X-Ray Diagnostic Results : Chest X-Ray Ordered: Yes # of Views/Limited/Complete: 1 View Indication: Shortness of Breath EP Interpretation: Yes Interpretation: no consolidation, no effusion, no pneumothorax, no acute cardiopulmonary disease Impression: No acute disease Electronically Signed by: Blanquita Julio MD Last Vital Signs Date Time Temp Pulse Resp B/P (MAP) Pulse Ox O2 Delivery O2 Flow Rate FiO2 03/21/20 19:11 98.8 100 18 134/87 (103) 95 Room Air Disposition: ADMITTED INPATIENT - Telemetry Condition: Critical Physician Consult: Blanquita Davenport M.D. Mar 21, 2020 19:29
--- NOTE | 2020-03-21 19:30 | NUR ---
ED Nurse Note: Patient brought in by ambulance [facility] 26 from formerly named [facility] with c/o desturation. Patients o2 sat at 95% per EMS. Denies chest pain, n/v. Patient is AAOx1 and cant ambulate. Bedside temp at F 101.0. Placed on isolation bed
--- NOTE | 2020-03-21 19:50 | NUR ---
ED Nurse Note: Blood specimen sent to lab
[2020-03-21 20:00] VITALS: BP 141/84
[2020-03-21 20:21] LABS: HEMOGLOBIN 14.7 G/DL (14.2-18.0); MEAN CORPUSCULAR VOLUME 91 FL (80-99); PLATELET COUNT 162 K/UL (150-450); RED BLOOD COUNT 5.04 M/UL (4.70-6.10); RED CELL DISTRIBUTION WIDTH 14.6 % (11.6-14.8)
[2020-03-21 20:22] LABS: WHITE BLOOD COUNT 22.2 K/UL (4.8-10.8)
[2020-03-21 20:25] LABS: INR 1.2 (0.9-1.1)
[2020-03-21 20:29] LABS: ANION GAP 13 mmol/L (5-15); BLOOD UREA NITROGEN 34 mg/dL (7-18); CALCIUM 8.7 MG/DL (8.5-10.1); CARBON DIOXIDE 23 MMOL/L (21-32); CHLORIDE 104 MMOL/L (98-107); CREATININE 1.3 MG/DL (0.55-1.30); POTASSIUM 3.7 MMOL/L (3.5-5.1); SODIUM 140 MMOL/L (136-145)
[2020-03-21 20:45] LABS: ALANINE AMINOTRANSFERASE 20 U/L (12-78); ALBUMIN/GLOBULIN RATIO 0.6 (1.0-2.7); ALKALINE PHOSPHATASE 89 U/L (46-116); ASPARTATE AMINO TRANSFERASE 20 U/L (15-37); BILIRUBIN,TOTAL 1.6 MG/DL (0.2-1.0); CREATINE KINASE 109 U/L (26-308)
[2020-03-21] MEDS ORDERED: Cefepime HCl 2 GM in D5W 55 ML IVPB ONE (20:45)
[2020-03-21] MEDS ORDERED: Vancomycin 1.5gm/NS Premix 275 ML IVPB ONE (20:45)
[2020-03-21 20:48] LABS: BILIRUBIN,DIRECT 0.5 MG/DL (0.0-0.3)
[2020-03-21] MEDS ORDERED: Acetaminophen 500mg (ES) tab ORAL ONE (21:00)
--- NOTE | 2020-03-21 22:00 | NUR ---
ED Nurse Note: Skin assessment: (+) scab wounds on both lower extremities. Picture taken and uploaded on system
[2020-03-21] MEDS ORDERED: ATORVASTATIN CA20 MG ORAL (22:17)
--- NOTE | 2020-03-21 22:38 | NUR ---
ED Nurse Note: Report given to ANNIE ALEXANDER
--- NOTE | 2020-03-21 22:45 | NUR ---
NURSE NOTES: Report received from BENJAMIN Lui. Pt is resting comfortably in bed; pt is fatigued and denies pain. Pt is AxO x1 and responds with nodding. Pt initial vitals are T96.8 P107 R18 BP121/82 O2 95%. Pt is breathing unlabored on room air sating 95%. Pt is on cardiac monitoring ST and asymptomatic. Pt has condom catheter on and pt has yet to void upon visit. Pt has generalized weakness and is being kept on bedrest; bilateral lower extremity 1/5 with stiffness. Pt has diminished lung sounds bilaterally on upper lobes; pt coughs occasionally. Pt skin is intact; pt has knee scabs bilaterally. Bed locked in lowest position with call light within reach. Will continue to monitor.
--- NOTE | 2020-03-21 22:45 | NUR ---
TRANSFER TO FLOOR: Patient transferred to TELE at rm 204 via rney with director of cardiac rehabilitation, accompanied by RN. Belongings checked and given to RN. Patient transferred safely to bed and endorsed to RN
[2020-03-22] VITALS: BP 121/82
[2020-03-22 04:00] VITALS: BP 132/78
[2020-03-22] MEDS ORDERED: Varibar Pudding 230ml MC PRN (06:30)
[2020-03-22] MEDS ORDERED: Varibar Nectar 240ml MC PRN (06:30)
[2020-03-22] MEDS ORDERED: Varibar Honey 250ml MC PRN (06:30)
[2020-03-22] MEDS ORDERED: Varibar Thin Liquid powder 148gm MC PRN (06:30)
--- NOTE | 2020-03-22 07:15 | NUR ---
NURSE HAND-OFF REPORT: Important Events on Shift:Pt admitted to Tele Floor. Initial assessment completed and orders obtained Patient Status: Stable Diet: NPO Pending Orders: Swallow Eval Pending Results/Labs:AM Labs Latest Vital Signs: Temperature 98.9 , Pulse 93 , B/P 132 /78 , Respiratory Rate 14 , O2 SAT 96 , Room Air, O2 Flow Rate . Vital Sign Comment: VSS EKG Rhythm: SR w BBBs Rhythm change?: N MD Notified?: N - MD Response: Latest Ortiz Fall Score: 40 Fall Risk: Medium Risk Safety Measures: Call light Within Reach, Bed Alarm Zone 2, Side Rails Side Rails x2, Bed position Low and Locked. Fall Precautions: Yellow Socks Yellow Gown Patient Fall Education Report given to BENJAMIN Wisdom.
--- NOTE | 2020-03-22 07:20 | NUR ---
NURSE NOTES: Received patient in bed. Awake, opens eyes spontaneously, patient attempts to speak but voice very diminished. On room air, respirations unlabored. No signs of pain noted at this time. Iv in the Right hand, infusing IVf as ordered. Side rails up x2, side rails padded, bed alarm on, call light within reach -unable to return demonstration. Heart monitor on.
[2020-03-22 07:36] LABS: MEAN CORPUSCULAR VOLUME 89 FL (80-99); PLATELET COUNT 161 K/UL (150-450); RED BLOOD COUNT 4.83 M/UL (4.70-6.10); RED CELL DISTRIBUTION WIDTH 13.6 % (11.6-14.8); WHITE BLOOD COUNT 21.2 K/UL (4.8-10.8)
[2020-03-22 07:49] LABS: CALCIUM 8.5 MG/DL (8.5-10.1); CREATININE 1.5 MG/DL (0.55-1.30); POTASSIUM 3.7 MMOL/L (3.5-5.1)
[2020-03-22 08:00] VITALS: BP 126/76
--- NOTE | 2020-03-22 08:17 | History & Physical ---
History and Physical History & Physicial 85-year-old male who is well-known to me from the retirement facility. The patient presented with noted hypoxemia low oxygen saturation. The patient arrived and was noted to have an adequate oxygen saturation. The patient transferred for evaluation and treatment patient nonverbal and unable to give an y history. In the emergency room the patient was noted to have a elevated white cell count and admitted for diagnosis of sepsis. He was given antibiotics and care reviewed and discussed with ER physician. Patient snf chart reviewed. Care discussed with the nursing staff also from the snf. Past medical history notable for atrial fibrillation thrombocytopenia t achycardia hypertension CVA right-sided weakness Medications and allergies reviewed and reconciled Social history patient resides in a retirement facility. Patient is fully dependent. Non-smoker nondrinker Review of systems unobtainable Physical examination Chronically ill-appearing male Vital signs 107, 96.8, 121/82, 18, 95% HEENT fairly negative neck supple no adenopathy Carotids 2+ Lungs with moderate breath sounds minimal rhonchi Cardiac exam (2 slightly tachycardic without murmurs rubs gallops Abdomen soft nontender no distention Extremities no cyanosis or clubbing no edema Neurologically with right-sided contractures and weakness Labs Test 03/21/20 19:48 03/21/20 21:34 03/22/20 05:49 White Blood Count 22.2 K/UL (4.8-10.8) 21.2 K/UL (4.8-10.8) Red Blood Count 5.04 M/UL (4.70-6.10) 4.83 M/UL (4.70-6.10) Hemoglobin 14.7 G/DL (14.2-18.0) 14.0 G/DL (14.2-18.0) Hematocrit 46.0 % (42.0-52.0) 43.0 % (42.0-52.0) Mean Corpuscular Volume 91 FL (80-99) 89 FL (80-99) Mean Corpuscular Hemoglobin 29.1 PG (27.0-31.0) 28.9 PG (27.0-31.0) Mean Corpuscular Hemoglobin Concent 31.9 G/DL (32.0-36.0) 32.5 G/DL (32.0-36.0) Red Cell Distribution Width 14.6 % (11.6-14.8) 13.6 % (11.6-14.8) Platelet Count 162 K/UL (150-450) 161 K/UL (150-450) Mean Platelet Volume 7.7 FL (6.5-10.1) 7.3 FL (6.5-10.1) Neutrophils (%) (Auto) % (45.0-75.0) % (45.0-75.0) Lymphocytes (%) (Auto) % (20.0-45.0) % (20.0-45.0) Monocytes (%) (Auto) % (1.0-10.0) % (1.0-10.0) Eosinophils (%) (Auto) % (0.0-3.0) % (0.0-3.0) Basophils (%) (Auto) % (0.0-2.0) % (0.0-2.0) Differential Total Cells Counted 100 Neutrophils % (Manual) 80 % (45-75) Lymphocytes % (Manual) 10 % (20-45) Monocytes % (Manual) 4 % (1-10) Eosinophils % (Manual) 0 % (0-3) Basophils % (Manual) 0 % (0-2) Band Neutrophils 6 % (0-8) Platelet Estimate Adequate Platelet Morphology Normal Red Blood Cell Morphology Normal Prothrombin Time 13.5 SEC (9.30-11.50) Prothromb Time International Ratio 1.2 (0.9-1.1) Activated Partial Thromboplast Time 30 SEC (23-33) Sodium Level 140 MMOL/L (136-145) 141 MMOL/L (136-145) Potassium Level 3.7 MMOL/L (3.5-5.1) 3.7 MMOL/L (3.5-5.1) Chloride Level 104 MMOL/L (98-107) 106 MMOL/L (98-107) Carbon Dioxide Level 23 MMOL/L (21-32) 23 MMOL/L (21-32) Anion Gap 13 mmol/L (5-15) 12 mmol/L (5-15) Blood Urea Nitrogen 34 mg/dL (7-18) 42 mg/dL (7-18) Creatinine 1.3 MG/DL (0.55-1.30) 1.5 MG/DL (0.55-1.30) Estimat Glomerular Filtration Rate 52.7 mL/min (>60) 44.7 mL/min (>60) Glucose Level 205 MG/DL (74-106) 162 MG/DL (74-106) Lactic Acid Level 1.70 mmol/L (0.4-2.0) Calcium Level 8.7 MG/DL (8.5-10.1) 8.5 MG/DL (8.5-10.1) Magnesium Level 2.0 MG/DL (1.8-2.4) Total Bilirubin 1.6 MG/DL (0.2-1.0) Direct Bilirubin 0.5 MG/DL (0.0-0.3) Aspartate Amino Transf (AST/SGOT) 20 U/L (15-37) Alanine Aminotransferase (ALT/SGPT) 20 U/L (12-78) Alkaline Phosphatase 89 U/L (46-116) Total Creatine Kinase 109 U/L (26-308) Troponin I 0.006 ng/mL (0.000-0.056) Pro-B-Type Natriuretic Peptide 1263 pg/mL (0-125) Total Protein 7.9 G/DL (6.4-8.2) Albumin 3.0 G/DL (3.4-5.0) Globulin 4.9 g/dL Albumin/Globulin Ratio 0.6 (1.0-2.7) Arterial Blood pH 7.499 (7.350-7.450) Arterial Blood Partial Pressure CO2 32.9 mmHg (35.0-45.0) Arterial Blood Partial Pressure O2 47.3 mmHg (75.0-100.0) Arterial Blood HCO3 25.0 mmol/L (22.0-26.0) Arterial Blood Oxygen Saturation 86.2 % (95-100) Arterial Blood Base Excess 2.4 (-2-2) Jd Test Positive Impression Sepsis Leukocytosis Acute renal failure Hyperbilirubinemia Mild protein calorie malnutrition CVA with focal weakness Mild coagulopathy Hypertension Hypercholesterolemia Seizure disorder Vitamin D deficiency Plan Resume snf medication IV hydration ID evaluation Monitor renal function Monitor respiration DVT prophylaxis Monitor vital signs impression, plan, and exam edited and reviewed in detail care discussed with Aureliano Cote MD Mar 22, 2020 08:17
[2020-03-22] MEDS: Vitamin D 400 INTLU TAB ORAL SCH ×2 (08:58→09:00)
[2020-03-22] MEDS: Piperacillin/Tazobactam 3.375 GM in NS 110 ML IVPB SCH ×2 (08:59→16:40)
[2020-03-22] MEDS: Docusate 100mg cap ORAL SCH ×2 (08:59→09:00)
[2020-03-22] MEDS: Heparin 5000 units/ml inj SUBQ SCH ×2 (09:04→22:16)
--- NOTE | 2020-03-22 09:23 | NUR ---
NURSE NOTES: Patient refused all PO medications. RN attempted x3. Attempted with applesauce and pudding. Patient removes RN hand away from his face and keeps his lips closed. Addendum: 03/22/20 at 0924 by Artis Marte RN Meds wasted in pyxis.
--- NOTE | 2020-03-22 10:20 | NUR ---
NURSE NOTES: Daughter Anjali contacted. Made aware of patient's refusal of medication. Daughter to come see patient during visiting hours.
[2020-03-22 11:54] VITALS: BP 134/80
--- NOTE | 2020-03-22 13:05 | NUR ---
NURSE NOTES: Urine specimen, MRSA swab, CRE, swab, and VRE swab collected and sent dwon to lab.
--- NOTE | 2020-03-22 13:10 | NUR ---
CASE MANAGEMENT: INITIAL REVIEW 85 YO M SAMANTHA FROM [facility] CC: DYSPNEA PMHx; HTN. DM. SZ. CVA SI;SEPSIS. T 98.8 HR 100 RR 18 B/P 134/87 SATS 95% ON RA LABS: WBC 22.2 BUN 34 GLU 205 TBILI 1.6 DBILI 0.5 BNP 1263 ABGS: PH 7.499 PCO2 32.9 PO2 47.3 O2 SAT 86.2 BE 2.4 IS: VANCO IV X1 CEFEPIME IV X1 TYLENOL PO X1 CXR Impression: No acute disease PATIENT ADMITTED TO TELE 03/21/2020 @ 2049 DCP: SNF PLAN OF CARE: IV hydration ID evaluation
[2020-03-22 13:28] LABS: APPEARANCE,URINE CLOUDY; BILIRUBIN, URINE 1+ (NEGATIVE); GLUCOSE, URINE (UA) NEGATIVE (NEGATIVE); KETONES,URINE 2+ (NEGATIVE); LEUKOCYTE ESTERASE ,URINE 3+ (NEGATIVE); NITRITE,URINE POSITIVE (NEGATIVE); PH,URINE 5 (4.5-8.0); PROTEIN,URINE 3+ (NEGATIVE); UROBILINOGEN,URINE 1 MG/DL (0.0-1.0)
--- NOTE | 2020-03-22 13:31 | Diagnostic Imaging Report ---
Indication: Altered mental status Technique: XRAY Chest 1v Comparison: 09/08/2013 Findings: Lung volumes are low. Cardiac mediastinal silhouette is prominent but this may be exaggerated by low lung volumes. Size is stable compared to the prior exam. There are atherosclerotic calcifications in a tortuous ectatic aorta. Question indwelling coronary arterial stent. There is no focal consolidation. There is mild pulmonary vascular prominence. No pleural effusion or pneumothorax. There are degenerative changes in the spine and shoulders. No acute osseous abnormality. IMPRESSION: Equivocal slight vascular prominence may be artifactual related to low lung volumes. Correlate clinically to exclude mild fluid overload/congestive changes. No dense consolidation.
[2020-03-22 13:44] LABS: COLOR,URINE YELLOW
[2020-03-22 16:00] VITALS: BP 129/86
--- NOTE | 2020-03-22 19:01 | NUR ---
NURSE HAND-OFF REPORT: Important Events on Shift:[UA, MRSA swab, VRE/CRE swab, BM, IV antibiotics] Patient Status: [FULL CODE] Diet: [NPO] Pending Orders: [] Pending Results/Labs:[] Pending MD notification:[] Latest Vital Signs: Temperature 97.4 , Pulse 108 , B/P 129 /86 , Respiratory Rate 19 , O2 SAT 96 , Room Air, O2 Flow Rate . Vital Sign Comment: [] EKG Rhythm: ST w/ BBB Rhythm change?: N MD Notified?: N - MD Response: Latest Ortiz Fall Score: 40 Fall Risk: Medium Risk Safety Measures: Call light Within Reach, Bed Alarm Zone 1, Side Rails Side Rails x2, Bed position Low and Locked. Fall Precautions: Yellow Socks Yellow Gown Patient Fall Education Report given to [Berhane RN].
--- NOTE | 2020-03-22 19:05 | NUR ---
Patient received from BENJAMIN Wisdom. Patient is currently sleeping but arouses to name. Patient only speaks Indonesian. Patient has a patent right 20 gauge IV on his right hand. Patient has no complaints and no acute distress at this time. Patient is currently on NPO. Bed light is in the lowest position, call light within reach. Will continue to monitor.
[2020-03-22 20:00] VITALS: BP 148/76
[2020-03-22] MEDS ORDERED: Vancomycin 1gm/D5W 275ml IVPB SCH ×2 (21:00)
[2020-03-23] VITALS: BP 122/76
[2020-03-23] MEDS: Piperacillin/Tazobactam 3.375 GM in NS 110 ML IVPB SCH ×3 (01:57→16:49)
[2020-03-23 04:00] VITALS: BP 137/83
--- NOTE | 2020-03-23 07:30 | NUR ---
NURSE NOTES: Received patient in bed. Awake, attempts to speak but unable to. On room air, respirations unlabored. No signs of pain noted at this time. Heart monitor in place. IV in the Right hand, infusing IVF as ordered. bed low and locked, side rails up x2, side rails padded, bed alarm on, call light within reach -unable to return demonstration.
--- NOTE | 2020-03-23 07:35 | NUR ---
NURSE HAND-OFF REPORT: Important Events on Shift:[Patient refuses to take medication] Patient Status: [stable] Diet: [NPO for ST eval] Pending Orders: [] Pending Results/Labs:[] Pending MD notification:[] Latest Vital Signs: Temperature 99.0 , Pulse 99 , B/P 137 /83 , Respiratory Rate 22 , O2 SAT 97 , Room Air, O2 Flow Rate . Vital Sign Comment: [] EKG Rhythm: Sinus Rhythm with BBB Rhythm change?: N MD Notified?: N - MD Response: Latest Ortiz Fall Score: 40 Fall Risk: Medium Risk Safety Measures: Call light Within Reach, Bed Alarm Zone 1, Side Rails Side Rails x2, Bed position Low and Locked. Fall Precautions: Yellow Socks Yellow Gown Patient Fall Education Report given to [BENJAMIN Wisdom].
[2020-03-23 08:00] VITALS: BP 144/80
--- NOTE | 2020-03-23 08:08 | Pulmonology Progress Note ---
Subjective ROS Limited/Unobtainable: Yes Allergies: Coded Allergies: No Known Allergies (Verified , 06/01/08) Subjective care noted still tachy labs noted Objective Last 24 Hour Vital Signs Date Time Temp Pulse Resp B/P (MAP) Pulse Ox O2 Delivery O2 Flow Rate FiO2 03/23/20 04:00 99 03/23/20 04:00 99.0 117 22 137/83 (101) 97 03/23/20 00:00 109 03/23/20 00:00 98.2 113 22 122/76 (91) 96 03/22/20 21:00 Room Air 03/22/20 20:00 101 03/22/20 20:00 98.2 114 22 148/76 (100) 95 03/22/20 16:00 97.4 106 19 129/86 (100) 96 03/22/20 16:00 108 03/22/20 12:00 95 03/22/20 11:54 97.7 61 19 134/80 (98) 93 03/22/20 09:00 Room Air Intake and Output 03/22/20 03/23/20 19:00 07:00 Intake Total 1000 ml 800.0 ml Balance 1000 ml 800.0 ml Intake IV Total 1000 ml 800.0 ml # Voids 1 2 Objective WDWN NAD clear breath sounds bilaterally without rhonchi or wheeze [id number] tachy without MRG NABS nontender no HSM no CCE nonfocal reduced LOC Microbiology Date/Time Source Procedure Growth Status 03/22/20 12:00 Urine,Clean Catch Urine Culture - Preliminary NO GROWTH Resulted 03/21/20 19:48 Nasopharynx SARS-CoV-2 RdRp Gene Assay - Final Complete 03/21/20 19:48 Blood Blood Culture - Preliminary NO GROWTH AFTER 24 HOURS Resulted 03/21/20 19:30 Blood Blood Culture - Preliminary NO GROWTH AFTER 24 HOURS Resulted Laboratory Tests 03/22/20 12:00: Urine Color Yellow, Urine Appearance Cloudy, Urine pH 5, Urine Specific [place] 1.020, Urine Protein 3+H, Urine Glucose (UA) Negative, Urine Ketones 2+H, Urine Blood 2+H, Urine Nitrite PositiveH, Urine Bilirubin 1+H, Urine Ictotest Negative, Urine Urobilinogen 1H, Urine Leukocyte Esterase 3+H, Urine RBC 5-10H, Urine WBC 30-40H, Urine Squamous Epithelial Cells Occasional, Urine Amorphous Sediment ModerateH, Urine Bacteria ManyH 03/23/20 05:45: Random Vancomycin Level 5.7 Current Medications Medications (Trade) Dose Ordered Sig/Darian Route PRN Reason Start Time Stop Time Status Last Admin Dose Admin Acetaminophen (Tylenol) 650 mg Q4H PRN ORAL Temp >100.5 03/22/20 09:00 04/21/20 08:59 Al Hydroxide/Mg Hydroxide (Mylanta) 30 ml Q4H PRN ORAL Abdominal cramps 03/22/20 09:00 04/21/20 08:59 Amlodipine Besylate (Norvasc) 5 mg DAILY ORAL 03/22/20 09:00 04/21/20 08:59 Atorvastatin Calcium (Lipitor) 10 mg BEDTIME ORAL 03/22/20 21:00 06/20/20 20:59 Barium Sulfate (Varibar Honey) 250 ml NOW PRN MC RAD 03/22/20 06:30 03/25/20 06:22 Barium Sulfate (Varibar [place]) 240 ml NOW PRN MC RAD 03/22/20 06:30 03/25/20 06:22 Barium Sulfate (Varibar Pudding) 230 ml NOW PRN MC RAD 03/22/20 06:30 03/25/20 06:22 Barium Sulfate (Varibar Thin Liquid powder) 148 gm NOW PRN MC RAD 03/22/20 06:30 03/25/20 06:22 Clonidine HCl (Catapres Tab) 0.1 mg Q4H PRN ORAL For High Blood Pressure 03/22/20 04:00 06/20/20 03:59 Clopidogrel Bisulfate (Plavix) 75 mg DAILY ORAL 03/22/20 09:00 04/21/20 08:59 Docusate Sodium (Colace) 100 mg DAILY ORAL 03/22/20 09:00 04/21/20 08:59 Enalapril Maleate (Vasotec) 20 mg EVERY 12 HOURS ORAL 03/22/20 09:00 04/21/20 08:59 Heparin Sodium (Porcine) (Heparin 5000 units/ml) 5,000 units EVERY 12 HOURS SUBQ 03/22/20 09:00 05/06/20 08:59 03/22/20 22:16 Levetiracetam (Keppra) 500 mg Q12HR ORAL 03/22/20 09:00 05/06/20 08:59 Multivitamins (Multivitamins) 1 tab DAILY ORAL 03/22/20 09:00 04/21/20 08:59 Pantoprazole (Protonix) 40 mg DAILY ORAL 03/22/20 09:00 04/21/20 08:59 Piperacillin Sod/ Tazobactam Sod 3.375 gm/Sodium Chloride 110 ml @ 27.5 mls/hr Q8H IVPB 03/22/20 09:00 03/29/20 08:59 03/23/20 01:57 Sodium Chloride 1,000 ml @ 100 mls/hr Q10H IV 03/22/20 03:45 04/21/20 03:44 03/22/20 23:03 Vancomycin HCl (Vanco pharmacy to dose) 1 ea DAILY PRN MISC Per rx protocol 03/22/20 12:00 04/21/20 11:59 Vitamin D (Vitamin D) 400 intlu DAILY ORAL 03/22/20 09:00 04/21/20 08:59 Assessment/Plan Assessment/Plan Impression Sepsis Leukocytosis Acute renal failure Hyperbilirubinemia Mild protein calorie malnutrition CVA with focal weakness Mild coagulopathy Hypertension Hypercholesterolemia Seizure disorder Vitamin D deficiency sinus tachycardia possible pneumonia Plan fpc medication IV hydration ID evaluation pending Monitor renal function Monitor respiration DVT prophylaxis Monitor vital signs and heart rate impression, plan, and exam edited and reviewed in detail care discussed with Aureliano Cote MD Mar 23, 2020 08:07
--- NOTE | 2020-03-23 08:56 | NUR ---
CASE MANAGEMENT: REVIEW 03/23/2020 SI:SEPSIS. VS: T 98.2 HR 100 RR 20 B/P 144/80 SATS 95% ON RA LABS: NO LABS TODAY IS:NS @ 100 ML/HR VASOTEC PO Q12H LIPITOR PO QHS NORVASC PO QD PLAVIX PO QD KEPPRA PO Q12H ZOSYN IV Q8H VANCO IV QD TELE PLAN OF CARE: IV hydration ID evaluation pending
--- NOTE | 2020-03-23 09:09 | NUR ---
insurance no b/ar info indicating where to fax clinicals Addendum: 03/23/20 at 0949 by Amarilys John CM SARA ANN
[2020-03-23] MEDS: Vitamin D 400 INTLU TAB ORAL SCH (09:12)
[2020-03-23] MEDS: Docusate 100mg cap ORAL SCH (09:12)
[2020-03-23] MEDS: Heparin 5000 units/ml inj SUBQ SCH ×2 (09:16→21:57)
--- NOTE | 2020-03-23 11:45 | Consultation ---
DATE OF CONSULTATION: 03/23/2020 INFECTIOUS DISEASES CONSULTATION CONSULTING PHYSICIAN: Simone Morelos MD. REFERRING PHYSICIAN: Aureliano Allison MD. REASON FOR CONSULTATION: Leukocytosis. HISTORY OF PRESENTING ILLNESS: This is an 85-year-old gentleman with history of hypertension, CVA, atrial fibrillation, thrombocytopenia who comes in with hypoxia with low oxygen saturation. He was found to have a leukocytosis and an Infectious Diseases consultation has been obtained for antibiotics. PAST MEDICAL HISTORY: 1. History of hypertension. 2. CVA. 3. Atrial fibrillation. 4. Thrombocytopenia. SOCIAL HISTORY: He does not smoke, drink, or use drugs. He is from a senior living facility. FAMILY HISTORY: Unknown. REVIEW OF SYSTEMS: Unable to obtain currently. MEDICATIONS: As an inpatient, he is on atorvastatin, vancomycin IV, vitamin D, multivitamin, Keppra, enalapril, docusate, , amlodipine, Protonix, Mylanta, Tylenol, subcutaneous heparin, Zosyn, clonidine. ALLERGIES: No known drug allergies. PHYSICAL EXAMINATION: VITAL SIGNS: Temperature of 98.2, T-max of 100.1, pulse of 100, respiratory rate 20, blood pressure 144/80, O2 saturation of 95% on room air. HEENT: Pupils are equally reactive to light and accommodation. Mouth appears clean without thrush. NECK: Supple. No adenopathy. No JVD. CARDIOVASCULAR: Regular rate and rhythm. No murmurs. LUNGS: Clear of auscultation bilaterally. No crackles. No wheezes. ABDOMEN: Soft and nontender. No organomegaly. EXTREMITIES: No cyanosis, no clubbing, no edema. LABORATORY AND DIAGNOSTIC DATA: White count of 21.2, hemoglobin 14, hematocrit 43, MCV 89, platelet count of 161. Sodium 141, potassium 3.7, chloride 106, bicarb 23, BUN 42, creatinine 1.5, glucose 162, calcium 8.5. Total bilirubin 1.6, AST 20, ALT 20, alkaline phosphatase 89. CK 109. Troponin 0.006. Beta-natriuretic peptide 1263. Total protein 7.9, albumin of 3. UA showing 30 to 40 white cells. Urine cultures are negative. COVID-19 test is negative. Blood cultures are negative. Chest x-ray showing mild fluid overload and congestive changes, no dense consolidation noted. ASSESSMENT: This is an 85-year-old gentleman with history of hypertension, CVA, atrial fibrillation, thrombocytopenia who comes in with hypoxia and is found to have. 1. Urinary tract infection. Cultures are negative. 2. Leukocytosis. 3. Renal failure. 4. Possible pneumonia. PLAN: 1. Continue Zosyn. 2. Discontinue IV vancomycin. 3. We will follow up cultures and adjust antibiotics accordingly. I would like to thank Dr. Allison, for this consultation. Simone Morelos M.D. DR: Rianna JOB#: [id number] CC: Aureliano Allison M.D.; Fax#: [phone]
[2020-03-23 12:00] VITALS: BP 124/72
--- NOTE | 2020-03-23 12:50 | NUR ---
This evaluation was limited given poor oral acceptance. Pt appears to be nonverbal with some occasional incorrect ASL signs. Pt signs "no" in appropriate ASLP sign with "N" hand shape. Pt encouraged verbally and explained ST services in Belgian, pt agreeable for limited trials. Pt trialed ice chips without s/sx of aspiration. Pt refused trialed of thin liquids at this time via tsp and agreeable to self-feed thin liquids via cup sip only. Pt drank entire 4 oz. cup of juice using single sips without s/sx of aspiration. Pt trialed puree with subsequent delayed cough x 2. Pt has possible congestion per CXR. Pt is not a candidate for a VFSS at this time as he likely will take very limited p.o. intake (especially if he does not like the taste) and does not follow directions. Pt refused to complete oral mech examination, all function was determined during p.o. intake. Noted reflexive chew with puree trials. Given poor candidacy for VFSS and overall p.o. intake, recommend thin liquid intake at this time via cup sip. Oral care recommended before and after trials. Pt is a MOD aspiration risk at this time. 1:1 supervision at this time with all intake. However, due to concern for decreased p.o. intake over time due to pt's limited p.o. acceptance, recommend RD consult and possible calorie count in the future. Continue ST services to monitor pt for diet tolerance and p.o.intake. Recommend future CXR to observe impact of diet on respiratory status. Visual aid will be placed above pt's bed. Pt must be upright during all p.o. intake. Crush crushable medications in liquid. Aggressive oral care extremely important with this pt. Small, single sips at a time. If pt demonstrates s/sx of aspiration including, but not limited to, desaturation below 90%, coughing, throat clearing, and eyes watering.
--- NOTE | 2020-03-23 15:25 | General Progress Note ---
Subjective ROS Limited/Unobtainable: No Constitutional: Reports: malaise, weakness HEENT: Reports: no symptoms Cardiovascular: Reports: no symptoms Respiratory: Reports: shortness of breath Gastrointestinal/Abdominal: Reports: difficulty swallowing Genitourinary: Reports: no symptoms Neurologic/Psychiatric: Reports: pre-existing deficit Endocrine: Reports: no symptoms Hematologic/Lymphatic: Reports: no symptoms Allergies: Coded Allergies: No Known Allergies (Verified , 06/01/08) All Systems: reviewed and negative except above Subjective no events. w/o complaints. no fevers or chills. on iv abx. abn UA noted. Objective Last 24 Hour Vital Signs Date Time Temp Pulse Resp B/P (MAP) Pulse Ox O2 Delivery O2 Flow Rate FiO2 03/23/20 12:00 96 03/23/20 12:00 98.0 100 20 124/72 (89) 95 03/23/20 09:12 144/80 03/23/20 09:12 100 144/80 03/23/20 08:09 Room Air 03/23/20 08:00 99 03/23/20 08:00 98.2 100 20 144/80 (101) 95 03/23/20 04:00 99 03/23/20 04:00 99.0 117 22 137/83 (101) 97 03/23/20 00:00 109 03/23/20 00:00 98.2 113 22 122/76 (91) 96 03/22/20 21:00 Room Air 03/22/20 20:00 101 03/22/20 20:00 98.2 114 22 148/76 (100) 95 03/22/20 16:00 97.4 106 19 129/86 (100) 96 03/22/20 16:00 108 Intake and Output 03/22/20 03/23/20 19:00 07:00 Intake Total 1000 ml 800.0 ml Balance 1000 ml 800.0 ml Intake IV Total 1000 ml 800.0 ml # Voids 1 2 Laboratory Tests 03/23/20 05:45: Random Vancomycin Level 5.7 Height (Feet): 5 Height (Inches): 10.00 Weight (Pounds): 148 General Appearance: WD/WN, confused EENT: normal ENT inspection Neck: non-tender, normal alignment, supple Cardiovascular: normal rate, regular rhythm Respiratory/Chest: chest wall non-tender, lungs clear, normal breath sounds Abdomen: normal bowel sounds, non tender, soft, no organomegaly Edema: no edema noted Arm (L), no edema noted Arm (R) Neurologic: responsive, disoriented Assessment/Plan Problem List: (1) Hypertension ICD Codes: I10 - Essential (primary) hypertension SNOMED: 47187714 (2) Chronic subdural hematoma ICD Codes: I62.03 - Nontraumatic chronic subdural hemorrhage SNOMED: 89339069 (3) Toxic metabolic encephalopathy ICD Codes: G92 - Toxic encephalopathy SNOMED: 866402356 (4) Fever ICD Codes: R50.9 - Fever, unspecified SNOMED: 986788782 (5) Leukocytosis ICD Codes: D72.829 - Elevated white blood cell count, unspecified SNOMED: 780412810, 916074222 (6) Sepsis ICD Codes: A41.9 - Sepsis, unspecified organism SNOMED: 83999249 Status: stable Assessment/Plan: iv abx follow up cultures dvt/stress ulcer prophylaxis resp care antiplt rx cont bp meds swallow eval/asp precautions Burt Russell MD Mar 23, 2020 15:25
[2020-03-23 16:00] VITALS: BP 154/70
--- NOTE | 2020-03-23 19:28 | NUR ---
NURSE HAND-OFF REPORT: Important Events on Shift:[ ST eval] Patient Status: [FULL CODE] Diet: [FULL LIQUID] Pending Orders: [] Pending Results/Labs:[] Pending MD notification:[] Latest Vital Signs: Temperature 98.3 , Pulse 104 , B/P 154 /70 , Respiratory Rate 22 , O2 SAT 96 , Room Air, O2 Flow Rate . Vital Sign Comment: [] EKG Rhythm: ST with BBB Rhythm change?: N MD Notified?: N - MD Response: Latest Ortiz Fall Score: 40 Fall Risk: Medium Risk Safety Measures: Call light Within Reach, Bed Alarm Zone 1, Side Rails Side Rails x2, Bed position Low and Locked. Fall Precautions: Yellow Socks Yellow Gown Patient Fall Education Report given to [Louie ALEXANDER].
--- NOTE | 2020-03-23 19:34 | NUR ---
NURSE NOTES: Received patient from Artis ALEXANDER. Patient is in bed Awake, Patient is unable to speak and only understand Salvadorean. On room air. No acute distress noted at this time. No signs of pain noted at this time. Heart monitor in place. IV in the Right hand 20G, running NS @ 100ml/hr as ordered. Bed low and locked, side rails up x2, side rails padded, bed alarm on, call light within reach. Patient was educated to use call light when needing assistance, Patient knobbed head yes demonstrating understanding. Will continue plan of care.
[2020-03-23 20:00] VITALS: BP 150/74
[2020-03-24] VITALS: BP 166/82
[2020-03-24] MEDS: Piperacillin/Tazobactam 3.375 GM in NS 110 ML IVPB SCH ×3 (01:23→16:28)
[2020-03-24 04:00] VITALS: BP 160/78
[2020-03-24 07:01] LABS: ANION GAP 12 mmol/L (5-15); BLOOD UREA NITROGEN 25 mg/dL (7-18); CALCIUM 8.3 MG/DL (8.5-10.1); CARBON DIOXIDE 22 MMOL/L (21-32); CHLORIDE 115 MMOL/L (98-107); POTASSIUM 3.3 MMOL/L (3.5-5.1); SODIUM 149 MMOL/L (136-145)
--- NOTE | 2020-03-24 07:24 | NUR ---
NURSE HAND-OFF REPORT: Important Events on Shift: Patient had an elevated BP. Patient pulled IV out During change Patient Status: Stable Diet: Cardiac Diet Pending Orders: [] Pending Results/Labs:[] Pending MD notification:[] Latest Vital Signs: Temperature 99.5 , Pulse 102 , B/P 160 /78 , Respiratory Rate 20 , O2 SAT 95 , Room Air, O2 Flow Rate . Vital Sign Comment: [] EKG Rhythm: Sinus Rythm with BBB Rhythm change?: N MD Notified?: N - MD Response: Latest Ortiz Fall Score: 40 Fall Risk: Medium Risk Safety Measures: Call light Within Reach, Bed Alarm Zone 1, Side Rails Side Rails x3, Bed position Low and Locked. Fall Precautions: Yellow Socks Yellow Gown Patient Fall Education Report given to Artis ALEXANDER.
--- NOTE | 2020-03-24 07:25 | NUR ---
NURSE NOTES: Received patient in bed. Awake, nonverbal. On room air, respirations unlabored. No signs of pain noted at this time. Bed low and locked, side rails up x2. Iv removed per patient. Call light within reach, unable to return demonstration.
[2020-03-24 08:00] VITALS: BP 116/79
--- NOTE | 2020-03-24 08:39 | General Progress Note ---
Subjective ROS Limited/Unobtainable: No Constitutional: Reports: malaise, weakness HEENT: Reports: no symptoms Cardiovascular: Reports: no symptoms Respiratory: Reports: no symptoms Gastrointestinal/Abdominal: Reports: difficulty swallowing Genitourinary: Reports: no symptoms Neurologic/Psychiatric: Reports: pre-existing deficit Endocrine: Reports: no symptoms Hematologic/Lymphatic: Reports: no symptoms Allergies: Coded Allergies: No Known Allergies (Verified , 06/01/08) All Systems: reviewed and negative except above Subjective no events. w/o complaints. no fevers or chills. on iv abx. abn UA noted. Na elevated. low k. speech noted Objective Last 24 Hour Vital Signs Date Time Temp Pulse Resp B/P (MAP) Pulse Ox O2 Delivery O2 Flow Rate FiO2 03/24/20 08:06 Room Air 03/24/20 08:00 96.9 87 18 116/79 (91) 96 03/24/20 04:00 93 03/24/20 04:00 99.5 102 20 160/78 (105) 95 03/24/20 02:03 166/82 03/24/20 00:00 97.9 101 20 166/82 (110) 95 03/24/20 00:00 97 03/23/20 21:59 150/74 03/23/20 21:00 Room Air 03/23/20 20:00 95 03/23/20 20:00 98.9 105 20 150/74 (99) 94 03/23/20 16:00 98.3 106 22 154/70 (98) 96 03/23/20 16:00 104 03/23/20 12:00 96 03/23/20 12:00 98.0 100 20 124/72 (89) 95 03/23/20 09:12 144/80 03/23/20 09:12 100 144/80 Intake and Output 03/23/20 03/24/20 19:00 07:00 Intake Total 1200 ml Balance 1200 ml Intake Oral 100 ml IV Total 1100 ml # Voids 1 2 Laboratory Tests 03/24/20 05:40: Sodium Level 149H, Potassium Level 3.3L, Chloride Level 115H, Carbon Dioxide Level 22, Anion Gap 12, Blood Urea Nitrogen 25H, Creatinine 1.0, Estimat Glomerular Filtration Rate > 60, Glucose Level 169H, Calcium Level 8.3L Height (Feet): 5 Height (Inches): 10.00 Weight (Pounds): 148 Objective General Appearance: WD/WN, confused EENT: normal ENT inspection Neck: non-tender, normal alignment, supple Cardiovascular: normal rate, regular rhythm Respiratory/Chest: chest wall non-tender, lungs clear, normal breath sounds Abdomen: normal bowel sounds, non tender, soft, no organomegaly Edema: no edema noted Arm (L), no edema noted Arm (R) Neurologic: responsive, disoriented Assessment/Plan Problem List: (1) Hypertension ICD Codes: I10 - Essential (primary) hypertension SNOMED: 25079719 (2) Chronic subdural hematoma ICD Codes: I62.03 - Nontraumatic chronic subdural hemorrhage SNOMED: 12157909 (3) Toxic metabolic encephalopathy ICD Codes: G92 - Toxic encephalopathy SNOMED: 760992365 (4) Fever ICD Codes: R50.9 - Fever, unspecified SNOMED: 818293479 (5) Leukocytosis ICD Codes: D72.829 - Elevated white blood cell count, unspecified SNOMED: 878080557, 114828937 (6) Sepsis ICD Codes: A41.9 - Sepsis, unspecified organism SNOMED: 88223058 Status: stable Assessment/Plan: iv abx follow up cultures dvt/stress ulcer prophylaxis resp care antiplt rx cont bp meds swallow eval/asp precautions ivf adjusted repeat labs in Burt Russell MD Mar 24, 2020 08:39
[2020-03-24] MEDS: Docusate 100mg cap ORAL SCH (08:53)
[2020-03-24] MEDS: Vitamin D 400 INTLU TAB ORAL SCH (08:53)
[2020-03-24] MEDS: Heparin 5000 units/ml inj SUBQ SCH ×2 (08:59→20:33)
[2020-03-24] MEDS: D5W w/KCl 20mEq 1,000 ML IV SCH ×2 (09:33→23:20)
--- NOTE | 2020-03-24 10:40 | Pulmonology Progress Note ---
Subjective ROS Limited/Unobtainable: No Allergies: Coded Allergies: No Known Allergies (Verified , 06/01/08) All Systems: reviewed and negative except above Objective Last 24 Hour Vital Signs Date Time Temp Pulse Resp B/P (MAP) Pulse Ox O2 Delivery O2 Flow Rate FiO2 03/24/20 09:00 89 162/80 03/24/20 08:54 162/80 03/24/20 08:06 Room Air 03/24/20 08:00 96.9 87 18 116/79 (91) 96 03/24/20 04:00 93 03/24/20 04:00 99.5 102 20 160/78 (105) 95 03/24/20 02:03 166/82 03/24/20 00:00 97.9 101 20 166/82 (110) 95 03/24/20 00:00 97 03/23/20 21:59 150/74 03/23/20 21:00 Room Air 03/23/20 20:00 95 03/23/20 20:00 98.9 105 20 150/74 (99) 94 03/23/20 16:00 98.3 106 22 154/70 (98) 96 03/23/20 16:00 104 03/23/20 12:00 96 03/23/20 12:00 98.0 100 20 124/72 (89) 95 Intake and Output 03/23/20 03/24/20 19:00 07:00 Intake Total 1200 ml Balance 1200 ml Intake Oral 100 ml IV Total 1100 ml # Voids 1 2 Microbiology Date/Time Source Procedure Growth Status 03/22/20 12:00 Rectum VRE Culture - Final NO VANCOMYCIN RESISTANT ENTEROCOCCUS ... Complete 03/22/20 12:00 Urine,Clean Catch Urine Culture - Final NO GROWTH AFTER 48 HOURS Complete 03/22/20 12:00 Nasal Nares MRSA Culture - Final NO METHICILLIN RESISTANT STAPH AUREUS... Complete 03/21/20 23:00 Rectum - Final NO CARBAPENEM-RESISTANT ENTEROBACTERI... Complete 03/21/20 23:00 Rectum VRE Culture - Final NO VANCOMYCIN RESISTANT ENTEROCOCCUS ... Complete 03/21/20 19:48 Nasopharynx SARS-CoV-2 RdRp Gene Assay - Final Complete 03/21/20 19:48 Blood Blood Culture - Preliminary NO GROWTH AFTER 24 HOURS Resulted 03/21/20 19:30 Blood Blood Culture - Preliminary NO GROWTH AFTER 24 HOURS Resulted Laboratory Tests 03/24/20 05:40: Sodium Level 149H, Potassium Level 3.3L, Chloride Level 115H, Carbon Dioxide Level 22, Anion Gap 12, Blood Urea Nitrogen 25H, Creatinine 1.0, Estimat Glomerular Filtration Rate > 60, Glucose Level 169H, Calcium Level 8.3L Current Medications Medications (Trade) Dose Ordered Sig/Darian Route PRN Reason Start Time Stop Time Status Last Admin Dose Admin Acetaminophen (Tylenol) 650 mg Q4H PRN ORAL Temp >100.5 03/22/20 09:00 04/21/20 08:59 Al Hydroxide/Mg Hydroxide (Mylanta) 30 ml Q4H PRN ORAL Abdominal cramps 03/22/20 09:00 04/21/20 08:59 Amlodipine Besylate (Norvasc) 5 mg DAILY ORAL 03/22/20 09:00 04/21/20 08:59 03/24/20 09:00 Atorvastatin Calcium (Lipitor) 10 mg BEDTIME ORAL 03/22/20 21:00 06/20/20 20:59 03/23/20 21:57 Barium Sulfate (Varibar Honey) 250 ml NOW PRN RAD 03/22/20 06:30 03/25/20 06:22 Barium Sulfate (Varibar [place]) 240 ml NOW PRN RAD 03/22/20 06:30 03/25/20 06:22 Barium Sulfate (Varibar Pudding) 230 ml NOW PRN RAD 03/22/20 06:30 03/25/20 06:22 Barium Sulfate (Varibar Thin Liquid powder) 148 gm NOW PRN RAD 03/22/20 06:30 03/25/20 06:22 Clonidine HCl (Catapres Tab) 0.1 mg Q4H PRN ORAL For High Blood Pressure 03/22/20 04:00 06/20/20 03:59 03/24/20 02:03 Clopidogrel Bisulfate (Plavix) 75 mg DAILY ORAL 03/22/20 09:00 04/21/20 08:59 03/24/20 08:53 Dextrose/ Electrolytes 1,000 ml @ 75 mls/hr [id number] IV 03/24/20 09:30 04/23/20 09:29 03/24/20 09:33 Docusate Sodium (Colace) 100 mg DAILY ORAL 03/22/20 09:00 04/21/20 08:59 03/24/20 08:53 Enalapril Maleate (Vasotec) 20 mg EVERY 12 HOURS ORAL 03/22/20 09:00 04/21/20 08:59 03/24/20 08:54 Heparin Sodium (Porcine) (Heparin 5000 units/ml) 5,000 units EVERY 12 HOURS SUBQ 03/22/20 09:00 05/06/20 08:59 03/24/20 08:59 Levetiracetam (Keppra) 500 mg Q12HR ORAL 03/22/20 09:00 05/06/20 08:59 03/24/20 08:53 Multivitamins (Multivitamins) 1 tab DAILY ORAL 03/22/20 09:00 04/21/20 08:59 03/24/20 08:53 Pantoprazole (Protonix) 40 mg DAILY ORAL 03/22/20 09:00 04/21/20 08:59 03/24/20 08:53 Piperacillin Sod/ Tazobactam Sod 3.375 gm/Sodium Chloride 110 ml @ 27.5 mls/hr Q8H IVPB 03/22/20 09:00 03/29/20 08:59 03/24/20 09:32 Vitamin D (Vitamin D) 400 intlu DAILY ORAL 03/22/20 09:00 04/21/20 08:59 03/24/20 08:53 Assessment/Plan Assessment/Plan Pulmonary Progress Note Subjective ROS Limited/Unobtainable: Yes Allergies: Coded Allergies: No Known Allergies (Verified , 06/01/08) Subjective care noted still tachy labs noted Objective Vital Signs Noted Objective WDWN NAD clear breath sounds bilaterally without rhonchi or wheeze [id number] tachy without MRG NABS nontender no HSM no CCE nonfocal reduced LOC Microbiology Date/Time Source Procedure Growth Status 03/22/20 12:00 Urine,Clean Catch Urine Culture - Preliminary NO GROWTH Resulted 03/21/20 19:48 Nasopharynx SARS-CoV-2 RdRp Gene Assay - Final Complete 03/21/20 19:48 Blood Blood Culture - Preliminary NO GROWTH AFTER 24 HOURS Resulted 03/21/20 19:30 Blood Blood Culture - Preliminary NO GROWTH AFTER 24 HOURS Resulted Laboratory Tests 03/22/20 12:00: Urine Color Yellow, Urine Appearance Cloudy, Urine pH 5, Urine Specific [place] 1.020, Urine Protein 3+H, Urine Glucose (UA) Negative, Urine Ketones 2+H, Urine Blood 2+H, Urine Nitrite PositiveH, Urine Bilirubin 1+H, Urine Ictotest Negative, Urine Urobilinogen 1H, Urine Leukocyte Esterase 3+H, Urine RBC 5-10H, Urine WBC 30-40H, Urine Squamous Epithelial Cells Occasional, Urine Amorphous Sediment ModerateH, Urine Bacteria ManyH 03/23/20 05:45: Random Vancomycin Level 5.7 Assessment/Plan Impression: Sepsis Leukocytosis Acute renal failure Hyperbilirubinemia Mild protein calorie malnutrition CVA with focal weakness Mild coagulopathy Hypertension Hypercholesterolemia Seizure disorder Vitamin D deficiency sinus tachycardia possible pneumonia Plan residential medication IV hydration ID evaluation pending Monitor renal function Monitor respiration DVT prophylaxis Monitor vital signs and heart rate impression, plan, and exam edited and reviewed in detail care discussed with Jose Luis Multani MD Mar 24, 2020 10:40
[2020-03-24 12:00] VITALS: BP 151/71
[2020-03-24 16:00] VITALS: BP 149/61
--- NOTE | 2020-03-24 19:18 | NUR ---
NURSE HAND-OFF REPORT: Important Events on Shift:[IV fluids change] Patient Status: [FULL CODE] Diet: FULL LIQUID] Pending Orders: [] Pending Results/Labs:[] Pending MD notification:[] Latest Vital Signs: Temperature 98.2 , Pulse 82 , B/P 149 /61 , Respiratory Rate 18 , O2 SAT 98 , Room Air, O2 Flow Rate . Vital Sign Comment: [] EKG Rhythm: Sinus Rhythm Rhythm change?: N MD Notified?: N - MD Response: Latest Ortiz Fall Score: 40 Fall Risk: Medium Risk Safety Measures: Call light Within Reach, Bed Alarm Zone 1, Side Rails Side Rails x2, Bed position Low and Locked. Fall Precautions: Yellow Socks Yellow Gown Patient Fall Education Report given to [Louie ALEXANDER].
--- NOTE | 2020-03-24 19:25 | NUR ---
NURSE NOTES: Received patient from Artis ALEXANDER. Patient is in bed sleeping, Patient is unable to speak and only understand Slovenian. On room air. No acute distress noted at this time. No signs of pain noted at this time. Heart monitor in place. IV in the Right hand 20G, running D5w with 20 mEq of KCL @ 75ml/hr as ordered. Bed low and locked, side rails up x2, side rails padded, bed alarm on, call light within reach. Patient was educated to use call light when needing assistance, Patient knobbed head yes demonstrating understanding. Will continue plan of care.
[2020-03-24 20:00] VITALS: BP 159/76
[2020-03-25] VITALS: BP 153/69
[2020-03-25] MEDS: Piperacillin/Tazobactam 3.375 GM in NS 110 ML IVPB SCH ×3 (00:43→16:19)
--- NOTE | 2020-03-25 01:29 | NUR ---
NURSE NOTES: Patient is sleeping in semi-messina position at this time. No acute distress noted. Will continue to monitor.
[2020-03-25 04:00] VITALS: BP 162/70
--- NOTE | 2020-03-25 07:07 | NUR ---
NURSE HAND-OFF REPORT: Important Events on Shift: none Patient Status: Stable Diet: Full liquid Pending Orders: [] Pending Results/Labs:[] Pending MD notification:[] Latest Vital Signs: Temperature 99.3 , Pulse 84 , B/P 162 /70 , Respiratory Rate 20 , O2 SAT 93 , Room Air, O2 Flow Rate . Vital Sign Comment: EKG Rhythm: Sinus Rhythm with 1 Degree AVB Rhythm change?: N MD Notified?: N - MD Response: Latest Ortiz Fall Score: 55 Fall Risk: High Risk Safety Measures: Call light Within Reach, Bed Alarm Zone 1, Side Rails Side Rails x3, Bed position Low and Locked. Fall Precautions: Yellow Socks Yellow Gown Patient Fall Education Report given to Artis ALEXANDER.
--- NOTE | 2020-03-25 07:23 | NUR ---
NURSE NOTES: Received patient in bed. Awake, nonverbal. On room air, respirations unlabored. No signs of pain noted at this time. IV in the Right forearm, infusing IVF as ordered. Patient is a high fall risk d/t Ortiz fall score of 55. Bed placed in the lowest position, yellow gown on, yellow socks on, side rails up x3, bed alarm placed on high sensitivity, call light placed within reach - unable to return demonstration. CN and ACCOUNT SUPPORT ASSOCIATE made aware. Heart monitor on.
[2020-03-25 08:00] VITALS: BP 167/81
[2020-03-25 08:09] LABS: BASOPHILS % (AUTO) 0.4 % (0.0-2.0); EOSINOPHILS % (AUTO) 0.4 % (0.0-3.0); HEMATOCRIT 33.6 % (42.0-52.0); HEMOGLOBIN 10.8 G/DL (14.2-18.0); LYMPHOCYTES % (AUTO) 11.9 % (20.0-45.0); MEAN CORPUSCULAR VOLUME 88 FL (80-99); MONOCYTES % (AUTO) 8.6 % (1.0-10.0); NEUTROPHILS % (AUTO) 78.7 % (45.0-75.0); PLATELET COUNT 169 K/UL (150-450); RED BLOOD COUNT 3.81 M/UL (4.70-6.10); RED CELL DISTRIBUTION WIDTH 13.4 % (11.6-14.8); WHITE BLOOD COUNT 9.6 K/UL (4.8-10.8)
--- NOTE | 2020-03-25 08:09 | General Progress Note ---
Subjective ROS Limited/Unobtainable: No Constitutional: Reports: malaise, weakness HEENT: Reports: no symptoms Cardiovascular: Reports: no symptoms Respiratory: Reports: cough Gastrointestinal/Abdominal: Reports: difficulty swallowing Genitourinary: Reports: no symptoms Neurologic/Psychiatric: Reports: no symptoms Endocrine: Reports: no symptoms Hematologic/Lymphatic: Reports: no symptoms Allergies: Coded Allergies: No Known Allergies (Verified , 06/01/08) All Systems: reviewed and negative except above Subjective no events. w/o complaints. no fevers or chills. on iv abx. labs pending. low grade temp. bp trending up Objective Last 24 Hour Vital Signs Date Time Temp Pulse Resp B/P (MAP) Pulse Ox O2 Delivery O2 Flow Rate FiO2 03/25/20 08:00 99.6 80 22 167/81 (109) 94 03/25/20 04:00 84 03/25/20 04:00 99.3 87 20 162/70 (100) 93 03/25/20 03:57 167/70 03/25/20 00:00 81 03/25/20 00:00 98.4 83 20 153/69 (97) 98 03/24/20 21:00 Room Air 03/24/20 20:32 159/76 03/24/20 20:00 98.8 87 20 159/76 (103) 96 03/24/20 20:00 80 03/24/20 16:00 98.2 79 18 149/61 (90) 98 03/24/20 16:00 82 03/24/20 12:00 98.7 61 20 151/71 (97) 97 03/24/20 12:00 90 03/24/20 09:00 89 162/80 03/24/20 08:54 162/80 Intake and Output 03/24/20 03/25/20 19:00 07:00 Intake Total 750 ml 1100.0 ml Balance 750 ml 1100.0 ml Intake Oral 0 ml 240 ml IV Total 750 ml 860.0 ml # Voids 3 4 Laboratory Tests 03/25/20 06:30: White Blood Count [Pending], Red Blood Count [Pending], Hemoglobin [Pending], Hematocrit [Pending], Mean Corpuscular Volume [Pending], Mean Corpuscular Hemoglobin [Pending], Mean Corpuscular Hemoglobin Concent [Pending], Red Cell Distribution Width [Pending], Platelet Count [Pending], Mean Platelet Volume [Pending], Neutrophils (%) (Auto) [Pending], Lymphocytes (%) (Auto) [Pending], Monocytes (%) (Auto) [Pending], Eosinophils (%) (Auto) [Pending], Basophils (%) (Auto) [Pending], Sodium Level [Pending], Potassium Level [Pending], Chloride Level [Pending], Carbon Dioxide Level [Pending], Blood Urea Nitrogen [Pending], Creatinine [Pending], Estimat Glomerular Filtration Rate [Pending], Glucose Level [Pending], Calcium Level [Pending], Total Bilirubin [Pending], Aspartate Amino Transf (AST/SGOT) [Pending], Alanine Aminotransferase (ALT/SGPT) [Pending], Alkaline Phosphatase [Pending], Total Protein [Pending], Albumin [Pending], Globulin [Pending] Height (Feet): 5 Height (Inches): 10.00 Weight (Pounds): 148 Objective General Appearance: WD/WN, confused EENT: normal ENT inspection Neck: non-tender, normal alignment, supple Cardiovascular: normal rate, regular rhythm Respiratory/Chest: chest wall non-tender, lungs clear, normal breath sounds Abdomen: normal bowel sounds, non tender, soft, no organomegaly Edema: no edema noted Arm (L), no edema noted Arm (R) Neurologic: responsive, disoriented Assessment/Plan Problem List: (1) Hypertension ICD Codes: I10 - Essential (primary) hypertension SNOMED: 66831503 (2) Chronic subdural hematoma ICD Codes: I62.03 - Nontraumatic chronic subdural hemorrhage SNOMED: 01388213 (3) Toxic metabolic encephalopathy ICD Codes: G92 - Toxic encephalopathy SNOMED: 119799793 (4) Fever ICD Codes: R50.9 - Fever, unspecified SNOMED: 439868994 (5) Leukocytosis ICD Codes: D72.829 - Elevated white blood cell count, unspecified SNOMED: 280219724, 973033401 (6) Sepsis ICD Codes: A41.9 - Sepsis, unspecified organism SNOMED: 56980529 Status: stable Assessment/Plan: iv abx follow up cultures dvt/stress ulcer prophylaxis resp care antiplt rx titrate bp rx follow up labs swallow eval/asp precautions ivf- will adjust based on labs repeat labs in Burt Nunez MD Mar 25, 2020 08:09
[2020-03-25 08:29] LABS: ALANINE AMINOTRANSFERASE 26 U/L (12-78); ALBUMIN 1.8 G/DL (3.4-5.0); ALBUMIN/GLOBULIN RATIO 0.4 (1.0-2.7); ALKALINE PHOSPHATASE 76 U/L (46-116); ANION GAP 9 mmol/L (5-15); ASPARTATE AMINO TRANSFERASE 27 U/L (15-37); BLOOD UREA NITROGEN 16 mg/dL (7-18); CALCIUM 8.6 MG/DL (8.5-10.1); CARBON DIOXIDE 25 MMOL/L (21-32); CHLORIDE 112 MMOL/L (98-107); CREATININE 0.9 MG/DL (0.55-1.30); POTASSIUM 3.5 MMOL/L (3.5-5.1); SODIUM 145 MMOL/L (136-145)
[2020-03-25] MEDS: Docusate 100mg cap ORAL SCH (08:33)
[2020-03-25] MEDS: Lisinopril 20mg tab ORAL SCH (08:34)
[2020-03-25] MEDS: Vitamin D 400 INTLU TAB ORAL SCH (08:34)
[2020-03-25] MEDS: Heparin 5000 units/ml inj SUBQ SCH ×2 (08:35→20:40)
[2020-03-25 12:00] VITALS: BP 158/91
[2020-03-25] MEDS: D5W w/KCl 20mEq 1,000 ML IV SCH (12:14)
--- NOTE | 2020-03-25 15:28 | Infectious Diseases Prog Note ---
Assessment/Plan Assessment/Plan A; Sepsis improving ? pneumonia Hypoxemia Atrial fibrillation Hypertension P; Continue Zosyn Subjective ROS Limited/Unobtainable: Yes Neurologic: Reports: other - left arm restraint Allergies: Coded Allergies: No Known Allergies (Verified , 06/01/08) Objective Last 24 Hour Vital Signs Date Time Temp Pulse Resp B/P (MAP) Pulse Ox O2 Delivery O2 Flow Rate FiO2 03/25/20 12:00 96.7 61 21 158/91 (113) 95 03/25/20 12:00 75 03/25/20 08:34 167/81 03/25/20 08:34 80 167/81 03/25/20 08:33 167/81 03/25/20 08:09 Room Air 03/25/20 08:00 99.6 80 22 167/81 (109) 94 03/25/20 08:00 75 03/25/20 04:00 84 03/25/20 04:00 99.3 87 20 162/70 (100) 93 03/25/20 03:57 167/70 03/25/20 00:00 81 03/25/20 00:00 98.4 83 20 153/69 (97) 98 03/24/20 21:00 Room Air 03/24/20 20:32 159/76 03/24/20 20:00 98.8 87 20 159/76 (103) 96 03/24/20 20:00 80 03/24/20 16:00 98.2 79 18 149/61 (90) 98 03/24/20 16:00 82 Height (Feet): 5 Height (Inches): 10.00 Weight (Pounds): 148 General Appearance: no acute distress HEENT: mucous membranes moist Respiratory/Chest: lungs clear Cardiovascular: normal rate Abdomen: soft, non tender Extremities: no edema Neurologic/Psychiatric: alert, responsive Laboratory Tests Test 03/25/20 06:30 White Blood Count 9.6 K/UL (4.8-10.8) Red Blood Count 3.81 M/UL (4.70-6.10) L Hemoglobin 10.8 G/DL (14.2-18.0) L Hematocrit 33.6 % (42.0-52.0) L Mean Corpuscular Volume 88 FL (80-99) Mean Corpuscular Hemoglobin 28.5 PG (27.0-31.0) Mean Corpuscular Hemoglobin Concent 32.2 G/DL (32.0-36.0) Red Cell Distribution Width 13.4 % (11.6-14.8) Platelet Count 169 K/UL (150-450) Mean Platelet Volume 6.7 FL (6.5-10.1) Neutrophils (%) (Auto) 78.7 % (45.0-75.0) H Lymphocytes (%) (Auto) 11.9 % (20.0-45.0) L Monocytes (%) (Auto) 8.6 % (1.0-10.0) Eosinophils (%) (Auto) 0.4 % (0.0-3.0) Basophils (%) (Auto) 0.4 % (0.0-2.0) Sodium Level 145 MMOL/L (136-145) Potassium Level 3.5 MMOL/L (3.5-5.1) Chloride Level 112 MMOL/L (98-107) H Carbon Dioxide Level 25 MMOL/L (21-32) Anion Gap 9 mmol/L (5-15) Blood Urea Nitrogen 16 mg/dL (7-18) Creatinine 0.9 MG/DL (0.55-1.30) Estimat Glomerular Filtration Rate > 60 mL/min (>60) Glucose Level 176 MG/DL (74-106) H Calcium Level 8.6 MG/DL (8.5-10.1) Total Bilirubin 1.0 MG/DL (0.2-1.0) Aspartate Amino Transf (AST/SGOT) 27 U/L (15-37) Alanine Aminotransferase (ALT/SGPT) 26 U/L (12-78) Alkaline Phosphatase 76 U/L (46-116) Total Protein 6.0 G/DL (6.4-8.2) L Albumin 1.8 G/DL (3.4-5.0) L Globulin 4.2 g/dL Albumin/Globulin Ratio 0.4 (1.0-2.7) L Current Medications Medications (Trade) Dose Ordered Sig/Darian Route PRN Reason Start Time Stop Time Status Last Admin Dose Admin Acetaminophen (Tylenol) 650 mg Q4H PRN ORAL Temp >100.5 03/22/20 09:00 04/21/20 08:59 Al Hydroxide/Mg Hydroxide (Mylanta) 30 ml Q4H PRN ORAL Abdominal cramps 03/22/20 09:00 04/21/20 08:59 Amlodipine Besylate (Norvasc) 5 mg DAILY ORAL 03/22/20 09:00 04/21/20 08:59 03/25/20 08:34 Atorvastatin Calcium (Lipitor) 10 mg BEDTIME ORAL 03/22/20 21:00 06/20/20 20:59 03/24/20 20:32 Clonidine HCl (Catapres Tab) 0.1 mg Q4H PRN ORAL For High Blood Pressure 03/22/20 04:00 06/20/20 03:59 03/25/20 03:57 Clopidogrel Bisulfate (Plavix) 75 mg DAILY ORAL 03/22/20 09:00 04/21/20 08:59 03/25/20 08:33 Dextrose/ Electrolytes 1,000 ml @ 75 mls/hr [id number] IV 03/24/20 09:30 04/23/20 09:29 03/25/20 12:14 Docusate Sodium (Colace) 100 mg DAILY ORAL 03/22/20 09:00 04/21/20 08:59 03/25/20 08:33 Enalapril Maleate (Vasotec) 20 mg EVERY 12 HOURS ORAL 03/22/20 09:00 04/21/20 08:59 03/25/20 08:33 Heparin Sodium (Porcine) (Heparin 5000 units/ml) 5,000 units EVERY 12 HOURS SUBQ 03/22/20 09:00 05/06/20 08:59 03/25/20 08:35 Levetiracetam (Keppra) 500 mg Q12HR ORAL 03/22/20 09:00 05/06/20 08:59 03/25/20 08:34 Lisinopril (PriniviL) 20 mg DAILY ORAL 03/25/20 09:00 04/24/20 08:59 03/25/20 08:34 Multivitamins (Multivitamins) 1 tab DAILY ORAL 03/22/20 09:00 04/21/20 08:59 03/25/20 08:33 Pantoprazole (Protonix) 40 mg DAILY ORAL 03/22/20 09:00 04/21/20 08:59 03/25/20 08:34 Piperacillin Sod/ Tazobactam Sod 3.375 gm/Sodium Chloride 110 ml @ 27.5 mls/hr Q8H IVPB 03/22/20 09:00 03/29/20 08:59 03/25/20 08:33 Vitamin D (Vitamin D) 400 intlu DAILY ORAL 03/22/20 09:00 04/21/20 08:59 03/25/20 08:34 Luther Hare MD Mar 25, 2020 15:28
[2020-03-25 16:00] VITALS: BP 117/69
--- NOTE | 2020-03-25 19:12 | NUR ---
NURSE HAND-OFF REPORT: Important Events on Shift: Patient Status: [FULL CODE] Diet: [FULL liquid] Pending Orders: [] Pending Results/Labs:[] Pending MD notification:[] Latest Vital Signs: Temperature 98.7 , Pulse 78 , B/P 117 /69 , Respiratory Rate 18 , O2 SAT 97 , Room Air, O2 Flow Rate . Vital Sign Comment: [] EKG Rhythm: Sinus Rhythm with 1 Degree AVB Rhythm change?: N MD Notified?: N - MD Response: Latest Ortiz Fall Score: 55 Fall Risk: High Risk Safety Measures: Call light Within Reach, Bed Alarm Zone 1, Side Rails Side Rails x3, Bed position Low and Locked. Fall Precautions: Yellow Socks Yellow Gown Patient Fall Education Report given to [Daysi ALEXANDER].
--- NOTE | 2020-03-25 19:38 | NUR ---
NURSE NOTES: Received report from BENJAMIN Gaviria. Patient is on bed, awake, alert and oriented x 0. epic ambulatory analyst is in place, shows sinus rhythm with no chest pain reported. Patient is on room air, sating 96%. On full liquid diet, thin liquids, crush medication. On fall and aspiration precaution, padded side rails. IV site is on right forearm g-22, running fluid of D5NS + 20 meqs kcl @ 75 cc/hour that is patent and intact. Safety measures are in place, bed in lowest and locked position, side rails up x 2, bed alarm is on. Will continue plan of care.
[2020-03-25 20:00] VITALS: BP 121/67
--- NOTE | 2020-03-25 21:33 | Pulmonology Progress Note ---
Subjective ROS Limited/Unobtainable: No Allergies: Coded Allergies: No Known Allergies (Verified , 06/01/08) All Systems: reviewed and negative except above Objective Last 24 Hour Vital Signs Date Time Temp Pulse Resp B/P (MAP) Pulse Ox O2 Delivery O2 Flow Rate FiO2 03/25/20 20:38 121/67 03/25/20 20:00 98.8 76 18 121/67 (85) 94 03/25/20 16:00 78 03/25/20 16:00 98.7 64 18 117/69 (85) 97 03/25/20 12:00 96.7 61 21 158/91 (113) 95 03/25/20 12:00 75 03/25/20 08:34 167/81 03/25/20 08:34 80 167/81 03/25/20 08:33 167/81 03/25/20 08:09 Room Air 03/25/20 08:00 99.6 80 22 167/81 (109) 94 03/25/20 08:00 75 03/25/20 04:00 84 03/25/20 04:00 99.3 87 20 162/70 (100) 93 03/25/20 03:57 167/70 03/25/20 00:00 81 03/25/20 00:00 98.4 83 20 153/69 (97) 98 Intake and Output 03/24/20 03/25/20 19:00 07:00 Intake Total 750 ml 1175.0 ml Balance 750 ml 1175.0 ml Intake Oral 0 ml 240 ml IV Total 750 ml 935.0 ml # Voids 3 4 Laboratory Tests 03/25/20 06:30: White Blood Count 9.6, Red Blood Count 3.81L, Hemoglobin 10.8L, Hematocrit 33.6L , Mean Corpuscular Volume 88, Mean Corpuscular Hemoglobin 28.5, Mean Corpuscular Hemoglobin Concent 32.2, Red Cell Distribution Width 13.4, Platelet Count 169, Mean Platelet Volume 6.7, Neutrophils (%) (Auto) 78.7H, Lymphocytes (%) (Auto) 11.9L, Monocytes (%) (Auto) 8.6, Eosinophils (%) (Auto) 0.4, Basophils (%) (Auto) 0.4, Sodium Level 145, Potassium Level 3.5, Chloride Level 112H, Carbon Dioxide Level 25, Anion Gap 9, Blood Urea Nitrogen 16, Creatinine 0.9, Estimat Glomerular Filtration Rate > 60, Glucose Level 176H, Calcium Level 8.6, Total Bilirubin 1.0, Aspartate Amino Transf (AST/SGOT) 27, Alanine Aminotransferase (ALT/SGPT) 26, Alkaline Phosphatase 76, Total Protein 6.0L, Albumin 1.8L, Globulin 4.2, Albumin/Globulin Ratio 0.4L Current Medications Medications (Trade) Dose Ordered Sig/Darian Route PRN Reason Start Time Stop Time Status Last Admin Dose Admin Acetaminophen (Tylenol) 650 mg Q4H PRN ORAL Temp >100.5 03/22/20 09:00 04/21/20 08:59 Al Hydroxide/Mg Hydroxide (Mylanta) 30 ml Q4H PRN ORAL Abdominal cramps 03/22/20 09:00 04/21/20 08:59 Amlodipine Besylate (Norvasc) 5 mg DAILY ORAL 03/22/20 09:00 04/21/20 08:59 03/25/20 08:34 Atorvastatin Calcium (Lipitor) 10 mg BEDTIME ORAL 03/22/20 21:00 06/20/20 20:59 03/25/20 20:38 Clonidine HCl (Catapres Tab) 0.1 mg Q4H PRN ORAL For High Blood Pressure 03/22/20 04:00 06/20/20 03:59 03/25/20 03:57 Clopidogrel Bisulfate (Plavix) 75 mg DAILY ORAL 03/22/20 09:00 04/21/20 08:59 03/25/20 08:33 Dextrose/ Electrolytes 1,000 ml @ 75 mls/hr [id number] IV 03/24/20 09:30 04/23/20 09:29 03/25/20 12:14 Docusate Sodium (Colace) 100 mg DAILY ORAL 03/22/20 09:00 04/21/20 08:59 03/25/20 08:33 Enalapril Maleate (Vasotec) 20 mg EVERY 12 HOURS ORAL 03/22/20 09:00 04/21/20 08:59 03/25/20 20:38 Heparin Sodium (Porcine) (Heparin 5000 units/ml) 5,000 units EVERY 12 HOURS SUBQ 03/22/20 09:00 05/06/20 08:59 03/25/20 20:40 Levetiracetam (Keppra) 500 mg Q12HR ORAL 03/22/20 09:00 05/06/20 08:59 03/25/20 20:38 Lisinopril (PriniviL) 20 mg DAILY ORAL 03/25/20 09:00 04/24/20 08:59 03/25/20 08:34 Multivitamins (Multivitamins) 1 tab DAILY ORAL 03/22/20 09:00 04/21/20 08:59 03/25/20 08:33 Pantoprazole (Protonix) 40 mg DAILY ORAL 03/22/20 09:00 04/21/20 08:59 03/25/20 08:34 Piperacillin Sod/ Tazobactam Sod 3.375 gm/Sodium Chloride 110 ml @ 27.5 mls/hr Q8H IVPB 03/22/20 09:00 03/29/20 08:59 03/25/20 16:19 Vitamin D (Vitamin D) 400 intlu DAILY ORAL 03/22/20 09:00 04/21/20 08:59 03/25/20 08:34 Assessment/Plan Assessment/Plan Pulmonary Progress Note Subjective ROS Limited/Unobtainable: Yes Allergies: Coded Allergies: No Known Allergies (Verified , 06/01/08) Subjective care noted on AB per ID labs noted Objective Vital Signs Noted Objective WDWN NAD clear breath sounds bilaterally without rhonchi or wheeze S1S2RR tachy without MRG NABS nontender no HSM no CCE nonfocal reduced LOC Microbiology Laboratory Tests noted Assessment/Plan Impression: Sepsis Leukocytosis Acute renal failure Hyperbilirubinemia Mild protein calorie malnutrition CVA with focal weakness Mild coagulopathy Hypertension Hypercholesterolemia Seizure disorder Vitamin D deficiency sinus tachycardia possible pneumonia Plan prison medication IV hydration ID evaluation pending Monitor renal function Monitor respiration DVT prophylaxis Monitor vital signs and heart rate impression, plan, and exam edited and reviewed in detail care discussed with Jose Luis Multani MD Mar 25, 2020 21:32
[2020-03-26] VITALS: BP 140/77
[2020-03-26] MEDS: D5W w/KCl 20mEq 1,000 ML IV SCH (00:43)
[2020-03-26] MEDS: Piperacillin/Tazobactam 3.375 GM in NS 110 ML IVPB SCH ×2 (00:44→08:21)
[2020-03-26 04:00] VITALS: BP 153/72
--- NOTE | 2020-03-26 07:24 | NUR ---
NURSE HAND-OFF REPORT: Important Events on Shift: Patient has been resting well the whole shift. He's able to follow commands and very cooperative with care. Patient Status: Patient is asleep in stabole conditoon. Plan of care endorsed. Diet: Full liquids, 1:1 feed assist Pending Orders: None Pending Results/Labs:None Pending MD notification:None Latest Vital Signs: Temperature 98.0 , Pulse 77 , B/P 153 /72 , Respiratory Rate 20 , O2 SAT 96 , Room Air, O2 Flow Rate . Vital Sign Comment: stable EKG Rhythm: Sinus Rhythm with 1 Degree AVB Rhythm change?: N MD Notified?: N - MD Response: Latest Ortiz Fall Score: 70 Fall Risk: High Risk Safety Measures: Call light Within Reach, Bed Alarm Zone 1, Side Rails Side Rails x3, Bed position Low and Locked. Fall Precautions: Yellow Socks Yellow Gown Door Sign Patient Fall Education Report given to BENJAMIN Mccartney.
--- NOTE | 2020-03-26 07:27 | General Progress Note ---
Subjective ROS Limited/Unobtainable: Yes Constitutional: Reports: malaise, weakness HEENT: Reports: no symptoms Cardiovascular: Reports: no symptoms Respiratory: Reports: cough Gastrointestinal/Abdominal: Reports: no symptoms Genitourinary: Reports: no symptoms Neurologic/Psychiatric: Reports: pre-existing deficit Endocrine: Reports: no symptoms Hematologic/Lymphatic: Reports: no symptoms Allergies: Coded Allergies: No Known Allergies (Verified , 06/01/08) All Systems: reviewed and negative except above Subjective no events. bp better controlled. no fevers. labs pending. on iv abx. poorly responsive at baseline. meds reviewed. tolerating po Objective Last 24 Hour Vital Signs Date Time Temp Pulse Resp B/P (MAP) Pulse Ox O2 Delivery O2 Flow Rate FiO2 03/26/20 04:00 98.0 76 20 153/72 (99) 96 03/26/20 04:00 77 03/26/20 00:00 70 03/26/20 00:00 98.5 70 19 140/77 (98) 95 03/25/20 21:00 Room Air 03/25/20 20:38 121/67 03/25/20 20:00 98.8 76 18 121/67 (85) 94 03/25/20 20:00 76 03/25/20 16:00 78 03/25/20 16:00 98.7 64 18 117/69 (85) 97 03/25/20 12:00 96.7 61 21 158/91 (113) 95 03/25/20 12:00 75 03/25/20 08:34 167/81 03/25/20 08:34 80 167/81 03/25/20 08:33 167/81 03/25/20 08:09 Room Air 03/25/20 08:00 99.6 80 22 167/81 (109) 94 03/25/20 08:00 75 Intake and Output 03/25/20 03/26/20 19:00 07:00 Intake Total 425 ml Output Total 500 ml Balance 425 ml -500 ml Intake Oral 200 ml IV Total 225 ml Output Urine Total 500 ml # Voids 2 Height (Feet): 5 Height (Inches): 10.00 Weight (Pounds): 148 Objective General Appearance: WD/WN, confused EENT: normal ENT inspection Neck: non-tender, normal alignment, supple Cardiovascular: normal rate, regular rhythm Respiratory/Chest: chest wall non-tender, lungs clear, normal breath sounds Abdomen: normal bowel sounds, non tender, soft, no organomegaly Edema: no edema noted Arm (L), no edema noted Arm (R) Neurologic: responsive, disoriented Assessment/Plan Problem List: (1) Hypertension ICD Codes: I10 - Essential (primary) hypertension SNOMED: 07105007 (2) Chronic subdural hematoma ICD Codes: I62.03 - Nontraumatic chronic subdural hemorrhage SNOMED: 34842568 (3) Toxic metabolic encephalopathy ICD Codes: G92 - Toxic encephalopathy SNOMED: 420078471 (4) Fever ICD Codes: R50.9 - Fever, unspecified SNOMED: 668573702 (5) Leukocytosis ICD Codes: D72.829 - Elevated white blood cell count, unspecified SNOMED: 023562724, 073655660 (6) Sepsis ICD Codes: A41.9 - Sepsis, unspecified organism SNOMED: 57310511 Status: stable Assessment/Plan: iv abx follow up cultures dvt/stress ulcer prophylaxis resp care antiplt rx titrate bp rx follow up labs swallow eval/asp precautions dc ivf monitor labs dvt/stress ulcer prophylaxis turn q2 Burt Russell MD Mar 26, 2020 07:27
--- NOTE | 2020-03-26 07:57 | Pulmonology Progress Note ---
Subjective ROS Limited/Unobtainable: Yes Allergies: Coded Allergies: No Known Allergies (Verified , 06/01/08) All Systems: reviewed and negative except above Subjective care noted weekend events with some improvement labs noted Objective Last 24 Hour Vital Signs Date Time Temp Pulse Resp B/P (MAP) Pulse Ox O2 Delivery O2 Flow Rate FiO2 03/26/20 04:00 98.0 76 20 153/72 (99) 96 03/26/20 04:00 77 03/26/20 00:00 70 03/26/20 00:00 98.5 70 19 140/77 (98) 95 03/25/20 21:00 Room Air 03/25/20 20:38 121/67 03/25/20 20:00 98.8 76 18 121/67 (85) 94 03/25/20 20:00 76 03/25/20 16:00 78 03/25/20 16:00 98.7 64 18 117/69 (85) 97 03/25/20 12:00 96.7 61 21 158/91 (113) 95 03/25/20 12:00 75 03/25/20 08:34 167/81 03/25/20 08:34 80 167/81 03/25/20 08:33 167/81 03/25/20 08:09 Room Air 03/25/20 08:00 99.6 80 22 167/81 (109) 94 03/25/20 08:00 75 Intake and Output 03/25/20 03/26/20 19:00 07:00 Intake Total 425 ml Output Total 500 ml Balance 425 ml -500 ml Intake Oral 200 ml IV Total 225 ml Output Urine Total 500 ml # Voids 2 Objective WDWN NAD clear breath sounds bilaterally without rhonchi or wheeze S1S2RR tachy without MRG NABS nontender no HSM no CCE nonfocal reduced LOC Laboratory Tests 03/26/20 06:17: Sodium Level [Pending], Potassium Level [Pending], Chloride Level [Pending], Carbon Dioxide Level [Pending], Blood Urea Nitrogen [Pending], Creatinine [Pending], Estimat Glomerular Filtration Rate [Pending], Glucose Level [Pending], Calcium Level [Pending] Current Medications Medications (Trade) Dose Ordered Sig/Darian Route PRN Reason Start Time Stop Time Status Last Admin Dose Admin Acetaminophen (Tylenol) 650 mg Q4H PRN ORAL Temp >100.5 03/22/20 09:00 04/21/20 08:59 Al Hydroxide/Mg Hydroxide (Mylanta) 30 ml Q4H PRN ORAL Abdominal cramps 03/22/20 09:00 04/21/20 08:59 Amlodipine Besylate (Norvasc) 5 mg DAILY ORAL 03/22/20 09:00 04/21/20 08:59 03/25/20 08:34 Atorvastatin Calcium (Lipitor) 10 mg BEDTIME ORAL 03/22/20 21:00 06/20/20 20:59 03/25/20 20:38 Clonidine HCl (Catapres Tab) 0.1 mg Q4H PRN ORAL For High Blood Pressure 03/22/20 04:00 06/20/20 03:59 03/25/20 03:57 Clopidogrel Bisulfate (Plavix) 75 mg DAILY ORAL 03/22/20 09:00 04/21/20 08:59 03/25/20 08:33 Docusate Sodium (Colace) 100 mg DAILY ORAL 03/22/20 09:00 04/21/20 08:59 03/25/20 08:33 Enalapril Maleate (Vasotec) 20 mg EVERY 12 HOURS ORAL 03/22/20 09:00 04/21/20 08:59 03/25/20 20:38 Heparin Sodium (Porcine) (Heparin 5000 units/ml) 5,000 units EVERY 12 HOURS SUBQ 03/22/20 09:00 05/06/20 08:59 03/25/20 20:40 Levetiracetam (Keppra) 500 mg Q12HR ORAL 03/22/20 09:00 05/06/20 08:59 03/25/20 20:38 Lisinopril (PriniviL) 20 mg DAILY ORAL 03/25/20 09:00 04/24/20 08:59 03/25/20 08:34 Multivitamins (Multivitamins) 1 tab DAILY ORAL 03/22/20 09:00 04/21/20 08:59 03/25/20 08:33 Pantoprazole (Protonix) 40 mg DAILY ORAL 03/22/20 09:00 04/21/20 08:59 03/25/20 08:34 Piperacillin Sod/ Tazobactam Sod 3.375 gm/Sodium Chloride 110 ml @ 27.5 mls/hr Q8H IVPB 03/22/20 09:00 03/29/20 08:59 03/26/20 00:44 Vitamin D (Vitamin D) 400 intlu DAILY ORAL 03/22/20 09:00 04/21/20 08:59 03/25/20 08:34 Assessment/Plan Assessment/Plan Impression Sepsis Leukocytosis resolved Acute renal failure Hyperbilirubinemia Mild protein calorie malnutrition CVA with focal weakness Mild coagulopathy Hypertension Hypercholesterolemia Seizure disorder Vitamin D deficiency sinus tachycardia- improved possible pneumonia Plan penitentiary medication IV hydration- may dc ID evaluation noted Monitor renal function Monitor respiration DVT prophylaxis Monitor vital signs and heart rate dc planning impression, plan, and exam edited and reviewed in detail care discussed with Aureliano Cote MD Mar 26, 2020 07:57
[2020-03-26 08:00] VITALS: BP 162/78
--- NOTE | 2020-03-26 08:00 | NUR ---
NURSE NOTES: received report from BENJAMIN baum. Pt AOxo, stable and resting in bed. side rails padded. mild reddness on bilateral heels and sacral area noted. R 22g FA running d5ns at 75cc. asymptomatic and intact. bed alarm on, call light in reach and bed alarm on. Will continue to monitor.
[2020-03-26] MEDS: Docusate 100mg cap ORAL SCH (08:20)
[2020-03-26] MEDS: Lisinopril 20mg tab ORAL SCH (08:20)
[2020-03-26] MEDS: Vitamin D 400 INTLU TAB ORAL SCH (08:21)
[2020-03-26] MEDS: Heparin 5000 units/ml inj SUBQ SCH (08:23)
[2020-03-26 08:33] LABS: ANION GAP 11 mmol/L (5-15); BLOOD UREA NITROGEN 8 mg/dL (7-18); CALCIUM 8.6 MG/DL (8.5-10.1); CARBON DIOXIDE 23 MMOL/L (21-32); CHLORIDE 106 MMOL/L (98-107); CREATININE 0.7 MG/DL (0.55-1.30); POTASSIUM 3.5 MMOL/L (3.5-5.1); SODIUM 140 MMOL/L (136-145)
--- NOTE | 2020-03-26 09:54 | NUR ---
CASE MANAGEMENT: DISCHARGE DISCUSSED WITH DR LAMBERT DISCHARGE ORDER RECEIVED AND ENTERED REMINDED DR LAMBERT ABOUT DOING THE MEDICATION RECONCILIATION
[2020-03-26] MEDS ORDERED: Tubing IV Secondary IV ONE (11:03)
[2020-03-26] MEDS ORDERED: ZOSYN 3.373.375 GM/5 IV (11:54)
[2020-03-26 12:00] VITALS: BP 143/71
--- NOTE | 2020-03-26 12:18 | Infectious Diseases Prog Note ---
Assessment/Plan Assessment/Plan A; Sepsis improving ? pneumonia Hypoxemia Atrial fibrillation Hypertension P; Continue Zosyn Subjective ROS Limited/Unobtainable: Yes Constitutional: Denies: fever Allergies: Coded Allergies: No Known Allergies (Verified , 06/01/08) Objective Last 24 Hour Vital Signs Date Time Temp Pulse Resp B/P (MAP) Pulse Ox O2 Delivery O2 Flow Rate FiO2 03/26/20 09:00 Room Air 03/26/20 08:23 76 162/78 03/26/20 08:21 162/78 03/26/20 08:20 162/78 03/26/20 08:00 74 03/26/20 08:00 99.0 76 20 162/78 (106) 96 03/26/20 04:00 98.0 76 20 153/72 (99) 96 03/26/20 04:00 77 03/26/20 00:00 70 03/26/20 00:00 98.5 70 19 140/77 (98) 95 03/25/20 21:00 Room Air 03/25/20 20:38 121/67 03/25/20 20:00 98.8 76 18 121/67 (85) 94 03/25/20 20:00 76 03/25/20 16:00 78 03/25/20 16:00 98.7 64 18 117/69 (85) 97 Height (Feet): 5 Height (Inches): 10.00 Weight (Pounds): 148 General Appearance: no acute distress HEENT: mucous membranes moist, other - poor dentition Respiratory/Chest: lungs clear Cardiovascular: normal rate Abdomen: soft, non tender Extremities: no edema Neurologic/Psychiatric: alert, responsive Laboratory Tests Test 03/26/20 06:17 Sodium Level 140 MMOL/L (136-145) Potassium Level 3.5 MMOL/L (3.5-5.1) Chloride Level 106 MMOL/L (98-107) Carbon Dioxide Level 23 MMOL/L (21-32) Anion Gap 11 mmol/L (5-15) Blood Urea Nitrogen 8 mg/dL (7-18) Creatinine 0.7 MG/DL (0.55-1.30) Estimat Glomerular Filtration Rate > 60 mL/min (>60) Glucose Level 145 MG/DL (74-106) H Calcium Level 8.6 MG/DL (8.5-10.1) Current Medications Medications (Trade) Dose Ordered Sig/Darian Route PRN Reason Start Time Stop Time Status Last Admin Dose Admin Acetaminophen (Tylenol) 650 mg Q4H PRN ORAL Temp >100.5 03/22/20 09:00 04/21/20 08:59 Al Hydroxide/Mg Hydroxide (Mylanta) 30 ml Q4H PRN ORAL Abdominal cramps 03/22/20 09:00 04/21/20 08:59 Amlodipine Besylate (Norvasc) 5 mg DAILY ORAL 03/22/20 09:00 04/21/20 08:59 03/26/20 08:23 Atorvastatin Calcium (Lipitor) 10 mg BEDTIME ORAL 03/22/20 21:00 06/20/20 20:59 03/25/20 20:38 Clonidine HCl (Catapres Tab) 0.1 mg Q4H PRN ORAL For High Blood Pressure 03/22/20 04:00 06/20/20 03:59 03/25/20 03:57 Clopidogrel Bisulfate (Plavix) 75 mg DAILY ORAL 03/22/20 09:00 04/21/20 08:59 03/26/20 08:21 Docusate Sodium (Colace) 100 mg DAILY ORAL 03/22/20 09:00 04/21/20 08:59 03/26/20 08:20 Enalapril Maleate (Vasotec) 20 mg EVERY 12 HOURS ORAL 03/22/20 09:00 04/21/20 08:59 03/26/20 08:21 Heparin Sodium (Porcine) (Heparin 5000 units/ml) 5,000 units EVERY 12 HOURS SUBQ 03/22/20 09:00 05/06/20 08:59 03/26/20 08:23 Levetiracetam (Keppra) 500 mg Q12HR ORAL 03/22/20 09:00 05/06/20 08:59 03/26/20 08:20 Lisinopril (PriniviL) 20 mg DAILY ORAL 03/25/20 09:00 04/24/20 08:59 03/26/20 08:20 Multivitamins (Multivitamins) 1 tab DAILY ORAL 03/22/20 09:00 04/21/20 08:59 03/26/20 08:20 Pantoprazole (Protonix) 40 mg DAILY ORAL 03/22/20 09:00 04/21/20 08:59 03/26/20 08:21 Piperacillin Sod/ Tazobactam Sod 3.375 gm/Sodium Chloride 110 ml @ 27.5 mls/hr Q8H IVPB 03/22/20 09:00 03/29/20 08:59 03/26/20 08:21 Vitamin D (Vitamin D) 400 intlu DAILY ORAL 03/22/20 09:00 04/21/20 08:59 03/26/20 08:21 Luther Hare MD Mar 26, 2020 12:18
--- NOTE | 2020-03-26 13:21 | NUR ---
*-*DISCHARGE PLANNED*-* PATIENT HAS BEEN ACCEPTED AND WILL BE DISCHARGE BACK TO: [facility] P: [phone] FOR NURSE TO NURSE REPORT ROOM# 211.[facility] TRANSP[facility] SET FOR 3PM S/W FAIZAN [id number] S/W PATIENT DAUGHTER JÚNIOR FELIX, WHO IS IN AGREEMENT WITH DISCHARGE PLAN.
--- NOTE | 2020-03-26 13:42 | NUR ---
NURSE NOTES: Pt report given to BENJAMIN Baker at [facility].
--- NOTE | 2020-03-26 15:26 | NUR ---
NURSE NOTES: Pt tele monitor removed, ID bands removed. pt IV 22g on RFA SL asymptomatic and intact. Pt stable on RA. No s/s or complaint of distress at this time. Pt belonging list signed, belonging of gown taken with Pt. Pt linen changed prior to d/c. Pt family notified. Report given to Olivia at [facility]. Report given to EMT, RUBI Uribe, unit [id number]. Pt transfered to [facility] without incident.
--- NOTE | 2020-03-28 11:53 | Discharge Summary ---
Discharge Summary Discharge Summary _ DATE OF ADMISSION: 03/21/2020 DATE OF DISCHARGE: 03/26/2020 DISCHARGED BY: Dr. Allison REASON FOR ADMISSION: 85 years old male, resident of custodial facility, with past medical history of atrial fibrillation, hypertension, CVA with right-sided weakness, thrombocytopenia, tachycardia, was sent for evaluation due to hypoxia. Laboratory work-up revealed significant leukocytosis WBC 22.2, hemoglobin 14.7 hematocrit 46 platelet count 162. Lactic acid 1.7. Stable electrolytes. BUN 34, creatinine 1.3. Stable LFT. Troponin negative proBNP 1263. Albumin 3.0. Rapid COVID-19 was negative. EKG revealed sinus tachycardia no acute ischemic changes. Patient was febrile 100.1. Urinalysis revealed +3 protein pyuria and many bacteria. In emergency department patient pancultured started on empiric antibiotic and admitted for further management. CONSULTANTS: ID specialist Dr. Morelos Internal medicine Dr. Russell [facility] COURSE: Patient admitted and started on the IV fluids and empiric antibiotics. SNF medication resumed. DVT prophylaxis provided. Blood cultures were negative. Urine culture was negative. Patient was on IV antibiotic as per ID recommendation for pneumonia. Leukocytosis and fever resolved. Diet texture provided as per speech therapist recommendations after completion of bedside swallow evaluation. Strict aspiration precaution maintained. Blood pressure was managed with calcium channel florencia and BENJI inhibitor, remained stable. Statin and antiplatelet therapy with Plavix continued. Vitamin D continued. Seizure precaution maintained. Keppra continued. No evidence of seizure activity while in the hospital. Renal parameters and electrolytes were closely monitored, nephrotoxic's were avoided Prior to discharge creatinine down to 0.7. BUN down to 8. Telemetry displayed sinus rhythm with first degree AV block. Sinus tachycardia resolved. Patient clinically stabilized and was ready for discharge custodial facility for continuation of care. Continue antibiotic at the facility to complete the course. FINAL DIAGNOSES: Sepsis Probably pneumonia Hypertension Atrial fibrillation Toxic metabolic encephalopathy Leukocytosis- resolved Acute renal failure-resolved Mild protein calorie malnutrition Prior CVA with focal weakness Hypertension Hypercholesterolemia Seizure disorder Sinus tachycardia-resolved Vitamin D deficiency DISCHARGE MEDICATIONS: See Medication Reconciliation list. DISCHARGE INSTRUCTIONS: Patient was discharged to the custodial facility. Follow up with medical doctor at the facility. I have been assigned to dictate discharge summary for this account. I was not involved in the patient's management. Laquita Rachel NP Mar 28, 2020 11:53
== END 2020-03-26 15:27 | DRG 871 ==
LOC: EDUNIT# 19:08 → EDBD 19:08 → EMR 20:00 → EDBEDREQ 20:43 → 2E 20:50 → EDBEDREQ 21:42 → 2E 22:51
DX: A41.9 Sepsis, unspecified organism (principal); J18.9 Pneumonia, unspecified organism; I62.03 Nontraumatic chronic subdural hemorrhage; G92 Toxic encephalopathy; N17.9 Acute kidney failure, unspecified; E44.1 Mild protein-calorie malnutrition; N39.0 Urinary tract infection, site not specified; I69.351 Hemiplegia and hemiparesis following cerebral infarction affecting right dominant side; R09.02 Hypoxemia; E80.7 Disorder of bilirubin metabolism, unspecified; I10 Essential (primary) hypertension; E78.00 Pure hypercholesterolemia, unspecified; G40.909 Epilepsy, unspecified, not intractable, without status epilepticus; E55.9 Vitamin D deficiency, unspecified; I48.91 Unspecified atrial fibrillation; I69.398 Other sequelae of cerebral infarction; R79.1 Abnormal coagulation profile
CPT/HCPCS: 36415; 71045; 80048; 80053; 80202; 81003; 82248; 82550; 82803; 83605; 83735; 83880; 84484; 85007; 85025; 85610; 85730; 87040; 87081; 87086; 92610; 93005; 96361; 96365; 96366; 96368; 99285; J7030; U0002